=== PATIENT | male | born 1940 ===

== ENCOUNTER 2018-11-25 18:56 | Emergency (ER) | payer OTHER ==
[~2018-11-25] VITALS: Ht 172.7 cm; Wt 98.0 kg
[2018-11-25] MEDS ORDERED: Amox Tr-K Clv1 EAC1 PO (20:24)
[2018-11-25] MEDS ORDERED: PRAM.5 PO (20:25)
[2018-11-25] MEDS ORDERED: LORCET 5-325 M1 EACH PO (20:26)
[2018-11-25] MEDS ORDERED: ALLO300 PO (20:29)
[2018-11-25] MEDS ORDERED: OMEP20ER PO (20:30)
[2018-11-25] MEDS ORDERED: GEMF600 PO (20:31)
[2018-11-25] MEDS ORDERED: Augmentin 875-1 EACH PO (20:32)
[2018-11-25] MEDS ORDERED: Oxybutynin Chlo10 MG PO (20:32)
[2018-11-25] MEDS ORDERED: CARBIDOPA-LEVO1 EAC3 PO (20:33)
[2018-11-25] MEDS ORDERED: ALPR.5 PO (20:35)
[2018-11-25 20:43] LABS: BASOPHILS ABSOLUTE AUTO 0.08 K/mm3 (0.00-0.23); BASOPHILS PERCENT AUTO 1 % (0-2); EOSINOPHILS ABSOLUTE AUTO 0.29 K/mm3 (0.00-0.68); EOSINOPHILS PERCENT AUTO 4 % (0-6); Hematocrit 32.8 % (37.0-53.0); Hemoglobin 11.5 g/dL (13.5-17.5); IMMATURE GRAN ABSOLUTE AUTO 0.04 K/mm3 (0.00-0.10); IMMATURE GRAN PERCENT AUTO 1 % (0-1); LYMPHOCYTES ABSOLUTE AUTO 2.58 K/mm3 (0.84-5.20); LYMPHOCYTES PERCENT AUTO 35 % (21-46); MONOCYTES ABSOLUTE AUTO 0.85 K/mm3 (0.16-1.47); MONOCYTES PERCENT AUTO 12 % (4-13); Mean Corpuscular HGB 36.7 pg (26.0-34.0); Mean Corpuscular HGB Conc 35.1 g/dL (31.5-36.5); Mean Corpuscular Volume 105 fL (80-100); Mean Platelet Volume 9.6 fL (9.1-12.4); NEUTROPHILS ABSOLUTE AUTO 3.51 K/mm3 (1.96-9.15); NEUTROPHILS PERCENT AUTO 48 % (41-73); Platelet Count 351 K/mm3 (150-400); RDW Coefficient Variation 14.4 % (11.7-14.2); RDW Standard Deviation 55.3 fL (35.1-46.3); Red Blood Cell Count 3.13 M/mm3 (4.30-5.90); White Blood Cell Count 7.35 K/mm3 (4.00-11.30)
[2018-11-25 20:47] LABS: Alanine Aminotransfer (ALT/SGP 14 U/L (12-78); Albumin, Blood 3.4 g/dL (3.4-5.0); Albumin/Globulin Ratio 0.8 (0.8-1.8); Alk Phos 93 U/L (50-136); Anion Gap 5 mmol/L (6-16); Aspartate Aminotrans (AST/SGOT 16 U/L (12-37); Bilirubin, Total 0.2 mg/dL (0.1-1.0); Blood Urea Nitrogen 34 mg/dL (8-24); Bun/Creatinine Ratio 23.1 (12.0-20.0); CO2, Blood 24 mmol/L (21-32); Calcium, Blood 9.1 mg/dL (8.5-10.1); Chloride, Blood 114 mmol/L (98-108); Creatinine, Blood 1.47 mg/dL (0.60-1.20); Globulin, Blood 4.3 g/dL (2.2-4.0); Glomerular Filtration Rate 49 (60-); Glucose, Blood 102 mg/dL (70-99); Potassium, Blood 3.8 mmol/L (3.5-5.5); Sodium, Blood 143 mmol/L (136-145); Total Protein, Blood 7.7 g/dL (6.4-8.2); Troponin I <0.015 ng/mL (0.000-0.040)
[2018-11-25 21:31] LABS: Source, Urine Clean Catch
[2018-11-25 21:45] LABS: Bilirubin, Urine Neg (Neg); Blood, Urine Neg (Neg); Glucose Qualitative, Urine Neg (Neg); Ketones, Urine 1+ (Neg); Leukocyte Esterase, Urine 1+ (Neg); Nitrite, Urine Neg (Neg); Protein, Urine 2+ (Neg); Specific Gravity, Urine 1.015 (1.003-1.022); Urobilinogen, Urine NORM (Normal)
[2018-11-25 21:47] LABS: Appearance, Urine Clear (Clear); Color, Urine Yellow (P-Yellow)
[2018-11-25 21:55] LABS: Bacteria Not Seen /hpf; Other Crystals Few /hpf; Red Blood Cells, Urine 0-2 /hpf (0-2); Squamous Epithelial Cells Rare /hpf (Few)
[2018-11-25 21:57] LABS: U Amphetamine Screen Not Detected; U Barbituate Screen Not Detected; U Benzodiazapine Screen Not Detected; U Buprenorphine Screen Not Detected; U Cannabinoids Screen Not Detected; U Cocaine Screen Not Detected; U Methadone Screen Not Detected; U Methamphetamine Screen Not Detected; U Opiates Screen DETECTED; U Oxycodone Screen Not Detected; U Phencyclidine Screen Not Detected; U Propoxyphene Screen Not Detected
== END 2018-11-25 23:51 | disposition home or self-care (01) ==
LOC: ER 18:56
PROVIDERS: Emergency Medicine
DX: G45.9 Transient cerebral ischemic attack, unspecified (principal); Z86.718 Personal history of other venous thrombosis and embolism; Z87.442 Personal history of urinary calculi; G20 Parkinson's disease; Z88.8 Allergy status to other drugs, medicaments and biological substances; Z79.899 Other long term (current) drug therapy; Z79.891 Long term (current) use of opiate analgesic; Z79.82 Long term (current) use of aspirin
CPT/HCPCS: 70450; 71046; 80053; 81001; 82140; 84484; 85025; 87086; 93005; 93010; 96360; 99285-25; G0480; J7030

== ENCOUNTER 2018-12-17 11:34 | Emergency (ER) | payer OTHER ==
[~2018-12-17] VITALS: Ht 170.2 cm; Wt 95.2 kg
[~2018-12-17 11:34] MED LIST: ALLO300 PO; ALPR.5 PO; Amox Tr-K Clv1 EAC1 PO; Augmentin 875-1 EACH PO; CARBIDOPA-LEVO1 EAC3 PO; GEMF600 PO; LORCET 5-325 M1 EACH PO; OMEP20ER PO; Oxybutynin Chlo10 MG PO; PRAM.5 PO
[2018-12-17 12:33] LABS: BASOPHILS ABSOLUTE AUTO 0.08 K/mm3 (0.00-0.23); BASOPHILS PERCENT AUTO 1 % (0-2); EOSINOPHILS ABSOLUTE AUTO 0.21 K/mm3 (0.00-0.68); EOSINOPHILS PERCENT AUTO 3 % (0-6); Hematocrit 35.3 % (37.0-53.0); IMMATURE GRAN ABSOLUTE AUTO 0.01 K/mm3 (0.00-0.10); IMMATURE GRAN PERCENT AUTO 0 % (0-1); LYMPHOCYTES ABSOLUTE AUTO 2.51 K/mm3 (0.84-5.20); LYMPHOCYTES PERCENT AUTO 38 % (21-46); MONOCYTES ABSOLUTE AUTO 0.67 K/mm3 (0.16-1.47); MONOCYTES PERCENT AUTO 10 % (4-13); Mean Corpuscular HGB 35.3 pg (26.0-34.0); Mean Corpuscular Volume 104 fL (80-100); Mean Platelet Volume 9.6 fL (9.1-12.4); NEUTROPHILS ABSOLUTE AUTO 3.17 K/mm3 (1.96-9.15); NEUTROPHILS PERCENT AUTO 48 % (41-73); Platelet Count 293 K/mm3 (150-400); RDW Coefficient Variation 13.9 % (11.7-14.2); RDW Standard Deviation 53.1 fL (35.1-46.3); White Blood Cell Count 6.65 K/mm3 (4.00-11.30)
[2018-12-17 13:00] LABS: Alanine Aminotransfer (ALT/SGP 8 U/L (12-78); Albumin, Blood 3.7 g/dL (3.4-5.0); Albumin/Globulin Ratio 0.8 (0.8-1.8); Alk Phos 88 U/L (50-136); Anion Gap 5 mmol/L (6-16); Aspartate Aminotrans (AST/SGOT 12 U/L (12-37); Bilirubin, Total 0.4 mg/dL (0.1-1.0); Blood Urea Nitrogen 34 mg/dL (8-24); Bun/Creatinine Ratio 27.9 (12.0-20.0); CO2, Blood 24 mmol/L (21-32); Calcium, Blood 9.5 mg/dL (8.5-10.1); Chloride, Blood 110 mmol/L (98-108); Creatinine, Blood 1.22 mg/dL (0.60-1.20); Globulin, Blood 4.6 g/dL (2.2-4.0); Glomerular Filtration Rate >60 (60-); Glucose, Blood 106 mg/dL (70-99); Potassium, Blood 3.4 mmol/L (3.5-5.5); Sodium, Blood 139 mmol/L (136-145); Total Protein, Blood 8.3 g/dL (6.4-8.2)
[2018-12-17 14:06] LABS: Source, Urine Clean Catch
[2018-12-17 14:11] LABS: Bilirubin, Urine Neg (Neg); Blood, Urine Neg (Neg); Glucose Qualitative, Urine Neg (Neg); Ketones, Urine Neg (Neg); Leukocyte Esterase, Urine Neg (Neg); Nitrite, Urine Neg (Neg); Protein, Urine Neg (Neg); Specific Gravity, Urine 1.015 (1.003-1.022); Urobilinogen, Urine NORM (Normal)
[2018-12-17 14:18] LABS: Appearance, Urine Clear (Clear); Color, Urine Yellow (P-Yellow)
[2018-12-17] MEDS ORDERED: CIPR500 PO (16:47)
[2018-12-17] MEDS ORDERED: Flagyl500 MG PO (16:47)
[2018-12-17] MEDS ORDERED: POTCHL20ER PO (16:53)
[2018-12-17] MEDS ORDERED: FURO40 PO (16:53)
[2018-12-17] MEDS ORDERED: Zocor20 MG (16:53)
[2018-12-17] MEDS ORDERED: ZOLP6.25 PO (16:54)
== END 2018-12-17 17:27 | disposition home or self-care (01) ==
LOC: ER 11:34
PROVIDERS: Physician Assistant
DX: A09 Infectious gastroenteritis and colitis, unspecified (principal); Z88.8 Allergy status to other drugs, medicaments and biological substances; Z88.6 Allergy status to analgesic agent; Z79.899 Other long term (current) drug therapy; G20 Parkinson's disease; F17.210 Nicotine dependence, cigarettes, uncomplicated
CPT/HCPCS: 36415; 74177; 80053; 81003; 85025; 99284-25; A9270-GY; Q9967

== ENCOUNTER → 2019-05-07 | Outpatient (CLI) | payer OTHER ==
[~2019-05-07] MED LIST changes: +CIPR500 PO; +FURO40 PO; +Flagyl500 MG PO; +POTCHL20ER PO; +ZOLP6.25 PO; +Zocor20 MG
== END | disposition home or self-care (01) ==
LOC: LAB SHORT 15:26 → PLD 15:26
DX: D48.5 Neoplasm of uncertain behavior of skin (principal)
CPT/HCPCS: 88305

== ENCOUNTER → 2019-06-03 | Outpatient (CLI) | payer OTHER | END | disposition home or self-care (01) | LOC: LAB 15:06 → PLD 15:06 → LAB SHORT 15:06 | DX: C44.212 Basal cell carcinoma of skin of right ear and external auricular canal (principal) | CPT/HCPCS: 88305 ==

== ENCOUNTER 2020-09-01 13:35 | Emergency (ER) | payer OTHER ==
[~2020-09-01] VITALS: Ht 165.1 cm; Wt 99.8 kg
[~2020-09-01 13:35] MED LIST changes: +MECL25 PO
== END 2020-09-01 16:41 | disposition home or self-care (01) ==
LOC: ER 13:35
DX: I82.411 Acute embolism and thrombosis of right femoral vein (principal); I82.431 Acute embolism and thrombosis of right popliteal vein; F17.290 Nicotine dependence, other tobacco product, uncomplicated; Z88.6 Allergy status to analgesic agent; Z88.8 Allergy status to other drugs, medicaments and biological substances; Z79.899 Other long term (current) drug therapy
CPT/HCPCS: 93971; 99284-25

== ENCOUNTER → 2020-12-08 | Outpatient (CLI) | payer OTHER ==
[~2020-12-08] MED LIST changes: +CYCL10 PO
== END | disposition home or self-care (01) ==
LOC: LAB SHORT 14:53
DX: L82.1 Other seborrheic keratosis (principal)
CPT/HCPCS: 88305

== ENCOUNTER 2020-12-10 04:44 | Emergency (ER) | payer OTHER ==
[~2020-12-10] VITALS: Ht 167.6 cm; Wt 92.5 kg
[~2020-12-10 04:44] MED LIST changes: -CYCL10 PO
[2020-12-10] MEDS ORDERED: CYCL10 PO (08:08)
== END 2020-12-10 08:31 | disposition home or self-care (01) ==
LOC: ER 04:44
DX: S16.1XXA Strain of muscle, fascia and tendon at neck level, initial encounter (principal); M48.02 Spinal stenosis, cervical region; M47.812 Spondylosis without myelopathy or radiculopathy, cervical region; M10.9 Gout, unspecified; M19.90 Unspecified osteoarthritis, unspecified site; F17.290 Nicotine dependence, other tobacco product, uncomplicated; Z88.6 Allergy status to analgesic agent; Z88.8 Allergy status to other drugs, medicaments and biological substances; Z79.899 Other long term (current) drug therapy; Z86.718 Personal history of other venous thrombosis and embolism; W19.XXXA Unspecified fall, initial encounter
CPT/HCPCS: 72125; 96374; 96375; 99284-25; J2405; J3010

== ENCOUNTER 2021-04-20 13:05 | Observation (INO) | payer OTHER ==
[~2021-04-20] VITALS: Ht 170.2 cm; Wt 87.9 kg
[~2021-04-20 13:05] MED LIST changes: +CYCL10 PO
[2021-04-20 14:04] LABS: BASOPHILS ABSOLUTE AUTO 0.06 K/mm3 (0.00-0.23); BASOPHILS PERCENT AUTO 1 % (0-2); EOSINOPHILS ABSOLUTE AUTO 0.04 K/mm3 (0.00-0.68); EOSINOPHILS PERCENT AUTO 0 % (0-6); Hematocrit 35.6 % (37.0-53.0); IMMATURE GRAN ABSOLUTE AUTO 0.02 K/mm3 (0.00-0.10); IMMATURE GRAN PERCENT AUTO 0 % (0-1); LYMPHOCYTES ABSOLUTE AUTO 2.12 K/mm3 (0.84-5.20); LYMPHOCYTES PERCENT AUTO 22 % (21-46); MONOCYTES ABSOLUTE AUTO 0.96 K/mm3 (0.16-1.47); MONOCYTES PERCENT AUTO 10 % (4-13); Mean Corpuscular HGB 33.8 pg (26.0-34.0); Mean Corpuscular HGB Conc 33.7 g/dL (31.5-36.5); Mean Corpuscular Volume 100 fL (80-100); Mean Platelet Volume 9.7 fL (9.1-12.4); NEUTROPHILS ABSOLUTE AUTO 6.47 K/mm3 (1.96-9.15); NEUTROPHILS PERCENT AUTO 67 % (41-73); Platelet Count 252 K/mm3 (150-400); RDW Standard Deviation 51.8 fL (35.1-46.3); Red Blood Cell Count 3.55 M/mm3 (4.30-5.90); White Blood Cell Count 9.67 K/mm3 (4.00-11.30)
[2021-04-20 14:25] LABS: Albumin, Blood 3.5 g/dL (3.4-5.0); Albumin/Globulin Ratio 0.8 (0.8-1.8); Bilirubin, Total 0.9 mg/dL (0.1-1.0); Bun/Creatinine Ratio 20.8 (12.0-20.0); Calcium, Blood 9.3 mg/dL (8.5-10.1); Creatinine, Blood 1.59 mg/dL (0.60-1.20); Globulin, Blood 4.3 g/dL (2.2-4.0); Potassium, Blood 3.8 mmol/L (3.5-5.5); Total Protein, Blood 7.8 g/dL (6.4-8.2)
[2021-04-20 15:22] LABS: Source, Urine Clean Catch
[2021-04-20 15:38] LABS: Appearance, Urine Clear (Clear); Bilirubin, Urine Neg (Neg); Blood, Urine 5+ (Neg); Color, Urine Yellow (P-Yellow); Glucose Qualitative, Urine Neg (Neg); Ketones, Urine Neg (Neg); Leukocyte Esterase, Urine Neg (Neg); Nitrite, Urine Neg (Neg); Protein, Urine 3+ (Neg); Specific Gravity, Urine 1.015 (1.003-1.022); Urobilinogen, Urine NORM (Normal)
[2021-04-20 15:51] LABS: Bacteria Rare /hpf; Squamous Epithelial Cells Rare /hpf (Few)
[2021-04-20] MEDS ORDERED: XARELTO15 MG PO (21:07)
[2021-04-20] MEDS ORDERED: GABAPENTIN600 MG PO (21:10)
[2021-04-20] MEDS ORDERED: MIRT15ST PO (21:11)
[2021-04-21 10:57] LABS: Adenovirus Not Detected (NOT DETECT); Coronavirus 229E Not Detected (NOT DETECT); Coronavirus HKU1 Not Detected (NOT DETECT); Coronavirus NL63 Not Detected (NOT DETECT); Coronavirus OC43 Not Detected (NOT DETECT); Human Metapneumovirus Not Detected (NOT DETECT); Human Rhinovirus/Enterovirus Not Detected (NOT DETECT); Influenza A/H1 Not Detected (NOT DETECT); Influenza A/H3 Not Detected (NOT DETECT); SARS-Cov-2 (COVID-19), BioFire Detected (NOT DETECT)
[2021-04-21 10:58] LABS: Bordetella pertussis Not Detected (NOT DETECT); Chlamydophila pneumoniae Not Detected (NOT DETECT); Influenza A/2009-H1 Not Detected (NOT DETECT); Influenza B Not Detected (NOT DETECT); Mycoplasma pneumoniae Not Detected (NOT DETECT); Parainfluenza Virus 1 Not Detected (NOT DETECT); Parainfluenza Virus 2 Not Detected (NOT DETECT); Parainfluenza Virus 3 Not Detected (NOT DETECT); Parainfluenza Virus 4 Not Detected (NOT DETECT); Respiratory Syncytial Virus Not Detected (NOT DETECT)
--- NOTE | 2021-04-22 04:46 | NUR ---
Received patient AAOX3. Came in with progressive weakness. He also sustain a fall at home. He is complaining of right leg pain. Both of his knees are bruised. Patient is also COVID 19+. He is at [facility]. No other complaint. He slept through the shift. No acute changes noted. We will continue with monitoring patient.
--- NOTE | 2021-04-22 09:42 | NUR ---
PAIN MEDICATION PT IN THE ROOM WORKING WITH THE PATIENT. PATIENT REPORTING HIGH LEVELS OF PAIN IN RIGHT KNEE WITH MOVEMENT. PATIENT REPORTED THAT HE IS NOW READY FOR SOME PAIN MEDICATION. DISCUSSED WITH DR. ZHANG. HOME MEDICATION AND DOSE ORDERED.
[2021-04-22] MEDS ORDERED: FURO20 PO (15:18)
[2021-04-22] MEDS ORDERED: IRON18 MG PO (15:27)
[2021-04-22] MEDS ORDERED: NIAC500 PO (15:28)
[2021-04-22] MEDS ORDERED: CALCIUM 600 MG1 EA19 PO (15:28)
[2021-04-22] MEDS ORDERED: MAGNESIUM OXID500 MG PO (15:28)
[2021-04-22] MEDS ORDERED: ALBU90OI INH (15:29)
[2021-04-22] MEDS ORDERED: Amlodipine Bes2.5 MG PO (15:31)
[2021-04-22] MEDS ORDERED: Robaxin750 MG PO (15:32)
[2021-04-22] MEDS ORDERED: STALEVO 200 TA1 EACH PO (17:12)
--- NOTE | 2021-04-22 19:07 | NUR ---
END OF SHIFT SUMMARY: PATIENT REPORTED MODERATE TO HIGH LEVELS OF PAIN IN HIS RIGHT KNEE, ESPECIALLY WITH REPOSITIONING. MEDICATED PER PRNS. PT WORKED WITH THE PATIENT. PATIENT DEMONSTRATED PT EXERCISES THROUGHOUT THE SHIFT. PATIENT IS MOTIVATED TO IMPROVE. PER PT'S RECOMMENDATIONS RELAYED TO DR. ZHANG, ORTHO CONSULT PLACED. DR. LAU IN TO SEE THE PATIENT AND RECOMMENDED OUTPATIENT FOLLOW-UP. PATIENT ANXIOUS AT TIMES AND TEARFUL. PATIENT REPORTS THAT HE IS USED TO BE THE CARE PROVIDER. PATIENT IS ANXIOUS ABOUT HIS AT HOME. HE WAS ABLE TO TALK WITH HIS NEIGHBOR. HIS NEIGHBOR WILL BE HELPING HIS RUN ERRANDS. WORKED WITH THE PATIENT'S TO UPDATE THE HOME MEDICATION LIST. VERIFIED STAL[place]O DOSE WITH THE PATIENT'S AND [facility] PHARMACIST. NOTIFIED DR. ZHANG OF UPDATED MEDICATION LIST.
--- NOTE | 2021-04-23 04:24 | NUR ---
SHIFT SUMMARY PT IS AN 81 Y/O MALE, ADMITTED FOR PHYSICAL DECONDITIONING AND POSITIVE FOR COVID-19. HE IS A&O X 3, MILDLY FORGETFUL AT TIMES. BEDREST. PT REPORTEDRLE KNEE PAIN R/T A FALL AT HOME. MEDICATED WITH PRN HYDROCODONE. NO C/O NAUSEA OR SOB. VITAL SIGNS STABLE. NO ACUTE CHANGES IN PT CONDITION NOTED DURING THE NIGHT. WILL CONTINUE TO MONITOR AND TREAT PER EMAR UNTIL HAND OFF TO DAY SHIFT RN.
--- NOTE | 2021-04-23 09:30 | NUR ---
PT COMPLAINS OF NAUSEA AND LIGHTHEADEDNESS AT 0910. VSS. DR ZHANG CALLED AT 09, NO ANSWER, LEFT MESSAGE. PT RESTING SUPINE IN BED WITH EMESIS BAG IN ONE HAND AND CALL LIGHT IN THE OTHER. BED IN LOW POSITION, CALL LIGHT WITHIN REACH
--- NOTE | 2021-04-23 17:19 | NUR ---
SHIFT SUMMARY PT AXO PLEASANT AND COOPERATIVE WITH CARE. MEDICATED FOR PAIN PER EMAR THOUGH PT CONTINUES TO COMPLAIN OF PAIN IN KNEES. VSS. 91-95% ON RA. DENIES COUGH. PT HAD ONE EPISODE OF NAUSEA, NEW ORDER FOR MEDICATION FROM DR ZHANG BUT WHEN THIS NURSE WAS IN TO ADMINISTER, PT DENIED NAUSEA. BED IN LOW POSITION, CALL LIGHT WITHIN REACH.
--- NOTE | 2021-04-23 17:42 | NUR ---
PT STATES THAT HE IS FEELING WORSE THIS EVENING. HE STATES HE FEELS WEAK AND FEELS TERRIBLE. PO INTAKE ENCOURAGED, URINE IS ORANGE, DR ZHANG AWARE. VSS
--- NOTE | 2021-04-24 03:41 | NUR ---
SHIFT SUMMARY Patient with Covid positive still waiting for COVID + Rehab placement. Patient AAOX3, forgetfull at time. He is cooperative and pleasant with care. Mild complaint of pain, medicated with eMAR. No other complaint voices. We will monitor for any acute changes.
[2021-04-24 05:32] LABS: Albumin, Blood 2.7 g/dL (3.4-5.0); Anion Gap 6 mmol/L (6-16); Blood Urea Nitrogen 34 mg/dL (8-24); Bun/Creatinine Ratio 27.9 (12.0-20.0); CO2, Blood 23 mmol/L (21-32); Calcium, Blood 9.1 mg/dL (8.5-10.1); Chloride, Blood 112 mmol/L (98-108); Creatinine, Blood 1.22 mg/dL (0.60-1.20); Glomerular Filtration Rate 57 (60-); Glucose, Blood 99 mg/dL (70-99); Phosphorus, Blood 3.9 mg/dL (2.5-4.9); Potassium, Blood 4.1 mmol/L (3.5-5.5); Sodium, Blood 141 mmol/L (136-145)
--- NOTE | 2021-04-24 15:23 | NUR ---
Upon receiving a spiritual care referral for spiritual care, I visit pt. Pt is lying in bed and alert. 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 He also shars about his nondenomenational Confucianist ivan and his decade long involvement with the [employer]oyoo. Pt is very social and is struggling with the isolation and the new limitations that he is facing because of his medical issues. I provide therapeutic listening, gentle sexual assault counsellor and compnaionship. Pt responds well and ahos signs of an elevated mood. I will continue to remain available to patient and family.
--- NOTE | 2021-04-24 19:24 | NUR ---
SHIFT SUMMARY A/O X4 T/O MOST OF THE SHIFT THOUGH PT DID SEEM A BIT CONFUSED ON WHERE HE WAS WHILE PASSING 1800 MEDS, PLEASANT AND COOPERATIVE, WEAK. NO ACUTE EVENTS THIS SHIFT, CALL LIGHT IN REACH, REPORT GIVEN TO SHARIFA JONES.
--- NOTE | 2021-04-25 13:06 | NUR ---
PATIENT TO BE DISCHARGED TODAY AT 1415 TO [facility]. REPORT IS CALLED AT 1300 TO [facility]. ALL QUESTIONS ANSWERED AND PATIENT TO TRANSPORT VIA WHEEL CHAIR AT 1415 TODAY. ANNETTE AND HIS SPOIUSE ARE NOTIFIED BY CHINA JONES. PATIENT VERBALIZED HE IS HAPPY TO BE GOING TODAY. WILL REMAIN AVAILABLE FOR THIS PATIENT UNTIL TRANSFER TO [facility].
== END 2021-04-25 14:20 ==
LOC: ER 13:05 → MEDS 04-21 13:06
PROVIDERS: Internal Medicine; Physician Assistant; Student in an Organized Health Care Education/Training Program; ADMIT Family Medicine
DX: S83.91XA Sprain of unspecified site of right knee, initial encounter (principal); R53.1 Weakness; G20 Parkinson's disease; U07.1 COVID-19; M17.11 Unilateral primary osteoarthritis, right knee; M25.461 Effusion, right knee; J44.9 Chronic obstructive pulmonary disease, unspecified; I87.2 Venous insufficiency (chronic) (peripheral); M10.9 Gout, unspecified; I12.9 Hypertensive chronic kidney disease with stage 1 through stage 4 chronic kidney disease, or unspecified chronic kidney disease; N18.30 Chronic kidney disease, stage 3 unspecified; D63.1 Anemia in chronic kidney disease; F17.290 Nicotine dependence, other tobacco product, uncomplicated; R11.0 Nausea; X50.1XXA Overexertion from prolonged static or awkward postures, initial encounter; Z88.8 Allergy status to other drugs, medicaments and biological substances; Z79.01 Long term (current) use of anticoagulants; Z96.641 Presence of right artificial hip joint; Z86.718 Personal history of other venous thrombosis and embolism; Z98.1 Arthrodesis status; Z66 Do not resuscitate
CPT/HCPCS: 0202U; 36415; 70450; 71045; 73502; 73562-RT; 80053; 80069; 81001; 85025; 97110; 97116; 97162; 97166; 97530; 99285-25; A9270; G0378

== ENCOUNTER 2022-01-18 04:02 | Emergency (ER) | payer OTHER ==
[~2022-01-18] VITALS: Ht 170.2 cm; Wt 95.7 kg
[~2022-01-18 04:02] MED LIST changes: +ALBU90OI INH; +Amlodipine Bes2.5 MG PO; +CALCIUM 600 MG1 EA19 PO; +FURO20 PO; +GABAPENTIN600 MG PO; +IRON18 MG PO; +MAGNESIUM OXID500 MG PO; +MIRT15ST PO; +NIAC500 PO; +Robaxin750 MG PO; +STALEVO 200 TA1 EACH PO; +XARELTO15 MG PO
[2022-01-18 04:49] LABS: Source, Urine Clean Catch
[2022-01-18 04:55] LABS: Bilirubin, Urine Neg (Neg); Blood, Urine 2+ (Neg); Glucose Qualitative, Urine Neg (Neg); Ketones, Urine Neg (Neg); Leukocyte Esterase, Urine Neg (Neg); Nitrite, Urine Neg (Neg); Protein, Urine 3+ (Neg); Specific Gravity, Urine 1.015 (1.003-1.022); Urobilinogen, Urine NORM (Normal)
[2022-01-18 05:10] LABS: BASOPHILS ABSOLUTE AUTO 0.08 K/mm3 (0.00-0.23); BASOPHILS PERCENT AUTO 1 % (0-2); EOSINOPHILS ABSOLUTE AUTO 0.24 K/mm3 (0.00-0.68); EOSINOPHILS PERCENT AUTO 4 % (0-6); Hematocrit 32.6 % (37.0-53.0); Hemoglobin 10.8 g/dL (13.5-17.5); IMMATURE GRAN ABSOLUTE AUTO 0.02 K/mm3 (0.00-0.10); IMMATURE GRAN PERCENT AUTO 0 % (0-1); LYMPHOCYTES ABSOLUTE AUTO 2.51 K/mm3 (0.84-5.20); LYMPHOCYTES PERCENT AUTO 40 % (21-46); MONOCYTES PERCENT AUTO 13 % (4-13); Mean Corpuscular HGB 33.4 pg (26.0-34.0); Mean Corpuscular HGB Conc 33.1 g/dL (31.5-36.5); Mean Corpuscular Volume 101 fL (80-100); Mean Platelet Volume 9.8 fL (9.1-12.4); NEUTROPHILS ABSOLUTE AUTO 2.71 K/mm3 (1.96-9.15); NEUTROPHILS PERCENT AUTO 43 % (41-73); Platelet Count 255 K/mm3 (150-400); RDW Coefficient Variation 14.6 % (11.7-14.2); RDW Standard Deviation 54.4 fL (35.1-46.3); Red Blood Cell Count 3.23 M/mm3 (4.30-5.90); White Blood Cell Count 6.36 K/mm3 (4.00-11.30)
[2022-01-18 05:31] LABS: Appearance, Urine Clear (Clear); Color, Urine Yellow (P-Yellow)
[2022-01-18 05:32] LABS: Bacteria Not Seen /hpf; Red Blood Cells, Urine 0-2 /hpf (0-2); Squamous Epithelial Cells Rare /hpf (Few); White Blood Cells, Urine 0-2 /hpf (0-5)
[2022-01-18 05:33] LABS: Bun/Creatinine Ratio 24.1 (12.0-20.0); Calcium, Blood 8.2 mg/dL (8.5-10.1); Creatinine, Blood 1.37 mg/dL (0.60-1.20); Potassium, Blood 3.6 mmol/L (3.5-5.5)
== END 2022-01-18 06:53 | disposition home or self-care (01) ==
LOC: ER 04:02
PROVIDERS: Emergency Medicine
DX: R60.0 Localized edema (principal); Z88.6 Allergy status to analgesic agent; Z88.8 Allergy status to other drugs, medicaments and biological substances; Z79.899 Other long term (current) drug therapy; Z79.891 Long term (current) use of opiate analgesic; G20 Parkinson's disease; M10.9 Gout, unspecified; M19.90 Unspecified osteoarthritis, unspecified site; F17.290 Nicotine dependence, other tobacco product, uncomplicated
CPT/HCPCS: 36415; 80048; 81001; 84484; 85025; 93005; 93010

== ENCOUNTER 2022-04-09 10:02 | Inpatient (IN) | payer OTHER ==
[~2022-04-09] VITALS: Ht 170.2 cm; Wt 84.9 kg
[~2022-04-09 10:02] MED LIST changes: +ALPRAZOLAM0.5 M1 PO; +CARBIDOPA-LEVO1 EA11 PO; +CELEXA10 MG PO; +FUROSEMIDE20 MG PO; +Methocarbamol750 MG PO; +POTA10T PO; +Simvastatin40 MG PO; +XARELTO20 M1 PO
[2022-04-09 10:47] LABS: BASOPHILS ABSOLUTE AUTO 0.11 K/mm3 (0.00-0.23); BASOPHILS PERCENT AUTO 1 % (0-2); EOSINOPHILS ABSOLUTE AUTO 0.11 K/mm3 (0.00-0.68); EOSINOPHILS PERCENT AUTO 1 % (0-6); Hematocrit 31.2 % (37.0-53.0); IMMATURE GRAN ABSOLUTE AUTO 0.03 K/mm3 (0.00-0.10); IMMATURE GRAN PERCENT AUTO 0 % (0-1); LYMPHOCYTES ABSOLUTE AUTO 2.24 K/mm3 (0.84-5.20); LYMPHOCYTES PERCENT AUTO 29 % (21-46); MONOCYTES ABSOLUTE AUTO 0.78 K/mm3 (0.16-1.47); MONOCYTES PERCENT AUTO 10 % (4-13); Mean Corpuscular HGB 34.6 pg (26.0-34.0); Mean Corpuscular HGB Conc 35.3 g/dL (31.5-36.5); Mean Corpuscular Volume 98 fL (80-100); Mean Platelet Volume 9.7 fL (9.1-12.4); NEUTROPHILS ABSOLUTE AUTO 4.39 K/mm3 (1.96-9.15); NEUTROPHILS PERCENT AUTO 57 % (41-73); Platelet Count 295 K/mm3 (150-400); RDW Coefficient Variation 14.2 % (11.7-14.2); RDW Standard Deviation 51.3 fL (35.1-46.3); Red Blood Cell Count 3.18 M/mm3 (4.30-5.90); White Blood Cell Count 7.66 K/mm3 (4.00-11.30)
[2022-04-09 11:02] LABS: Alanine Aminotransfer (ALT/SGP <6 U/L (12-78); Albumin, Blood 3.2 g/dL (3.4-5.0); Albumin/Globulin Ratio 0.7 (0.8-1.8); Alk Phos 83 U/L (50-136); Anion Gap 8 mmol/L (6-16); Aspartate Aminotrans (AST/SGOT 10 U/L (12-37); Bilirubin, Total 0.5 mg/dL (0.1-1.0); Blood Urea Nitrogen 19 mg/dL (8-24); Bun/Creatinine Ratio 17.4 (12.0-20.0); CO2, Blood 24 mmol/L (21-32); Calcium, Blood 6.5 mg/dL (8.5-10.1); Chloride, Blood 109 mmol/L (98-108); Creatinine, Blood 1.09 mg/dL (0.60-1.20); Globulin, Blood 4.3 g/dL (2.2-4.0); Glomerular Filtration Rate 67 (60-); Glucose, Blood 124 mg/dL (70-99); Sodium, Blood 141 mmol/L (136-145); Total Protein, Blood 7.5 g/dL (6.4-8.2)
[2022-04-09 13:58] LABS: Thyroid Stimulating Hormone 2.34 uIU/mL (0.360-4.800)
[2022-04-09 14:11] LABS: Magnesium, Blood 0.5 mg/dL (1.6-2.4)
[2022-04-09 14:27] LABS: Source, Urine Clean Catch
[2022-04-09 14:31] LABS: Appearance, Urine Clear (Clear); Bilirubin, Urine Neg (Neg); Blood, Urine 1+ (Neg); Color, Urine Yellow (P-Yellow); Glucose Qualitative, Urine Neg (Neg); Ketones, Urine Neg (Neg); Leukocyte Esterase, Urine Neg (Neg); Nitrite, Urine Neg (Neg); Protein, Urine 2+ (Neg); Specific Gravity, Urine 1.005 (1.003-1.022); Urobilinogen, Urine NORM (Normal); pH, Urine 6.5 (5.0-8.0)
[2022-04-09 14:44] LABS: Bacteria Rare /hpf; Red Blood Cells, Urine 0-2 /hpf (0-2); Squamous Epithelial Cells Not Seen /hpf (Few); White Blood Cells, Urine 0-2 /hpf (0-5)
[2022-04-09 15:22] LABS: Influenza A, PCR NEGATIVE (NEGATIVE); Influenza B, PCR NEGATIVE (NEGATIVE); Resp Syncytial Virus, PCR NEGATIVE (NEGATIVE); SARS-Cov-2 (COVID-19) PCR, MMC NEGATIVE (NEGATIVE)
--- NOTE | 2022-04-09 18:48 | NUR ---
SHIFT SUMMARY PT TRANSFERRED FROM THE ED TOWARDS THE END OF THE SHIFT. INTITIAL ASSESSMENT DOCUMENTATION COMPLETE. ABX INFUSING NOW. PT GIVEN LIQUIDS FOR DINNER PER THE DIET ORDER. WILL REPORT TO ONCOMING NURSE.
--- NOTE | 2022-04-10 03:45 | NUR ---
SHIFT SUMMARY PATIENT IS ALERT AND ORIENTED. PATIENT HAS HAD NO ACUTE EVENT THIS SHIFT. VITAL SIGNS REVIEWED. PATIENT HAS BEEN PLEASENT AND COOPERATIVE WITH CARE. DR MET WITH PATIENT EARLY IN SHIFT AND WENT OVER REASON FOR HOSPITALIZATION AND COMFORTED PATIENT. PATIENTS NEIGHBOR TO BRING HOME DOSE MEDICATIONS IN THE MORNING. PATIENT HAS NOT COMPLAINED OF PAIN, NAUSEA, SOB OR VOMITTING. PATIENT HAS BEEN RESTING MOST OF SHIFT. PATIENT HAS BEEN USING CPAP SATTING WELL ALL NIGHT. BED IN LOCKED AND LOWEST POSITION. CALL LIGHT IN PLACE.
[2022-04-10 05:51] LABS: BASOPHILS ABSOLUTE AUTO 0.09 K/mm3 (0.00-0.23); BASOPHILS PERCENT AUTO 1 % (0-2); EOSINOPHILS ABSOLUTE AUTO 0.11 K/mm3 (0.00-0.68); EOSINOPHILS PERCENT AUTO 1 % (0-6); Hemoglobin 10.2 g/dL (13.5-17.5); IMMATURE GRAN ABSOLUTE AUTO 0.02 K/mm3 (0.00-0.10); IMMATURE GRAN PERCENT AUTO 0 % (0-1); LYMPHOCYTES ABSOLUTE AUTO 2.32 K/mm3 (0.84-5.20); LYMPHOCYTES PERCENT AUTO 27 % (21-46); MONOCYTES ABSOLUTE AUTO 0.78 K/mm3 (0.16-1.47); MONOCYTES PERCENT AUTO 9 % (4-13); Mean Corpuscular HGB 33.8 pg (26.0-34.0); Mean Corpuscular Volume 99 fL (80-100); Mean Platelet Volume 9.7 fL (9.1-12.4); NEUTROPHILS ABSOLUTE AUTO 5.42 K/mm3 (1.96-9.15); NEUTROPHILS PERCENT AUTO 62 % (41-73); Platelet Count 267 K/mm3 (150-400); RDW Coefficient Variation 14.3 % (11.7-14.2); RDW Standard Deviation 51.7 fL (35.1-46.3); Red Blood Cell Count 3.02 M/mm3 (4.30-5.90); White Blood Cell Count 8.74 K/mm3 (4.00-11.30)
[2022-04-10 06:00] LABS: International Normalized Ratio 1.27; Prothrombin Time Results 13.1 Sec (9.7-11.5)
[2022-04-10 06:13] LABS: Albumin, Blood 2.7 g/dL (3.4-5.0); Albumin/Globulin Ratio 0.7 (0.8-1.8); Bilirubin, Total 0.4 mg/dL (0.1-1.0); Bun/Creatinine Ratio 12.7 (12.0-20.0); Calcium, Blood 6.2 mg/dL (8.5-10.1); Creatinine, Blood 1.18 mg/dL (0.60-1.20); Globulin, Blood 3.9 g/dL (2.2-4.0); Magnesium, Blood 0.9 mg/dL (1.6-2.4); Potassium, Blood 3.4 mmol/L (3.5-5.5); Total Protein, Blood 6.6 g/dL (6.4-8.2)
--- NOTE | 2022-04-10 11:39 | NUR ---
PATIENT HAD A FRIEND BRING IN MEDICATION FOR PARKINSONS. PHAMACY HAS VERIFIED THE MEDICATION AND HIS HOME MED IS BAR CODED AND IN THE PATIENTS DRAWER. DURING ASSESSMENT, EDEMA WAS NOTED TO BE BUBBLED AROUND THE AREA OF COMPRESSION FROM THE SCD'S. PATEINT REPORTED THAT HE HAS BLOOD CLOTS IN THE RIGHT LE, FROM KNEE DOWN WHICH ARE ATTACHED TO THE WALL AND THAT ATTEMPTED TREATMENT BY THE VENOUS DOCTOR WAS NOT SUCCESSFUL. DR. HOYOS WAS NOTIFIED ABOUT THE CLOTS WHEN HE CAME TO THE FLOOR TO TALK WITH THE PATIENT.
--- NOTE | 2022-04-10 17:33 | NUR ---
PATIENT HAD A CRITICAL MAG LEVEL AT THE VERY BEGINNING OF AM, WITH A BAG OF MAGNESIUM ORDERED AND ADMINISTERED. LEVEL IS STILL LOW, BUT NO LONGER CRITICAL AT 1.4. PATIENT IS ALSO PRESCRIBED A COUPLE MORE ABX, ROCEPHIN AND AMOXICILLIN, BOTH OF WHICH STARTED AT 1800. PARKINSONS MEDICATION FROM HOME WAS DOC IN AND VERIFIED BY PHARMACY. HE STARTED HIS HOME MED AT 1000. LEGS ARE JUMPY. APPEAR TO BE A LITTLE BETTER THIS AFTERNOON. LS HAVE INS WHE AND EXP TALEND DEVELOPER. PATIENT ALSO MENTIONED CHRONIC BLOOD CLOTS IN RIGHT LE FROM KNEE DOWN THAT ARE AFIXED THE WALL AND NOT MOVING. PATIENT HAS SLEPT ALOT THIS SHIFT AND ONCE ASLEEP, HE SLEEPS SOUND AND IT APPEARS TO BE A STRUGGLE FOR HIM TO WAKE BACK UP- TAKES A WHILE. COCCYX HAS A PRESSURE RELATED REDDENED AREA-CLOSED AND COVERED WITH MEPILEX. NO OTHER CONCERNS
--- NOTE | 2022-04-11 03:27 | NUR ---
SHIFT SUMMARY PATIENT IS ALERT AND ORIENTED. PATIENT HAS HAD NO ACUTE EVENTS THIS SHIFT. VITAL SIGNS REVIEWED. PATIENT HAS NOT COMPLAINED OF PAIN, NAUSEA, SOB OR VOMITTING. PATIENT HAS BEEN RESTING MOST OF SHIFT. PATIENT IS PLEASENT AND COOPERATIVE AND CHATTY THIS SHIFT. PATIENT HAS BEEN USING CPAP OFF AND ON TONIGHT. BED IN LOWEST AND LOCKED POSITION. CALL LIGHT IN PLACE. WILL MONITOR UNTIL SHIFT CHANGE.
[2022-04-11 05:42] LABS: BASOPHILS ABSOLUTE AUTO 0.08 K/mm3 (0.00-0.23); BASOPHILS PERCENT AUTO 1 % (0-2); EOSINOPHILS ABSOLUTE AUTO 0.14 K/mm3 (0.00-0.68); EOSINOPHILS PERCENT AUTO 1 % (0-6); Hemoglobin 10.4 g/dL (13.5-17.5); IMMATURE GRAN ABSOLUTE AUTO 0.03 K/mm3 (0.00-0.10); IMMATURE GRAN PERCENT AUTO 0 % (0-1); LYMPHOCYTES ABSOLUTE AUTO 2.32 K/mm3 (0.84-5.20); LYMPHOCYTES PERCENT AUTO 23 % (21-46); MONOCYTES ABSOLUTE AUTO 0.84 K/mm3 (0.16-1.47); MONOCYTES PERCENT AUTO 8 % (4-13); Mean Corpuscular HGB 34.7 pg (26.0-34.0); Mean Corpuscular HGB Conc 34.7 g/dL (31.5-36.5); Mean Corpuscular Volume 100 fL (80-100); Mean Platelet Volume 9.7 fL (9.1-12.4); NEUTROPHILS PERCENT AUTO 66 % (41-73); Platelet Count 257 K/mm3 (150-400); RDW Coefficient Variation 14.3 % (11.7-14.2); RDW Standard Deviation 51.8 fL (35.1-46.3); White Blood Cell Count 10.01 K/mm3 (4.00-11.30)
[2022-04-11 06:14] LABS: Alanine Aminotransfer (ALT/SGP <6 U/L (12-78); Albumin, Blood 2.8 g/dL (3.4-5.0); Albumin/Globulin Ratio 0.8 (0.8-1.8); Alk Phos 69 U/L (50-136); Anion Gap 5 mmol/L (6-16); Aspartate Aminotrans (AST/SGOT 11 U/L (12-37); Bilirubin, Total 0.4 mg/dL (0.1-1.0); Blood Urea Nitrogen 19 mg/dL (8-24); Bun/Creatinine Ratio 17.1 (12.0-20.0); CO2, Blood 27 mmol/L (21-32); Calcium, Blood 7.3 mg/dL (8.5-10.1); Chloride, Blood 109 mmol/L (98-108); Creatinine, Blood 1.11 mg/dL (0.60-1.20); Globulin, Blood 3.6 g/dL (2.2-4.0); Glomerular Filtration Rate 65 (60-); Glucose, Blood 96 mg/dL (70-99); Potassium, Blood 3.4 mmol/L (3.5-5.5); Sodium, Blood 141 mmol/L (136-145); Total Protein, Blood 6.4 g/dL (6.4-8.2)
--- NOTE | 2022-04-11 10:50 | NUR ---
DR BALTAZAR ROUNDED, POSSIBLE DISCHARGE TODAY
[2022-04-11] MEDS ORDERED: GABA300 PO (11:07)
[2022-04-11] MEDS ORDERED: AMOCLA875 PO (11:12)
--- NOTE | 2022-04-11 18:45 | NUR ---
MAKES NEEDS KNOWN, AGGITATED THREATENING AND DOES NOT REMEBER SIMPLE TASKS FROM THIS AM, LULU REPORTS HE SUNDOWNS ON THE THIRD DAY AT THE HOSPITAL, REPORTED TO DR BALTAZAR, SEROQUEL ORDERED, PATIENT STATING "CALL THE BIG BOSS I AM LEAVING", FAMILY AND AWARE PATIENT IS NOT DISCAHRGED FROM THE HOSPITAL, CALL LIGHT WITH IN REACH, BED ALARM ON.
[2022-04-12 05:27] LABS: Calcium, Blood 8.2 mg/dL (8.5-10.1); Potassium, Blood 3.7 mmol/L (3.5-5.5)
--- NOTE | 2022-04-12 06:28 | NUR ---
UNDERCOVER AGENT SUMMARY: A&Ox3. PLEASANT AND COOPERATIVE WITH CARE. USUALLY CALLS APPROPRIATELY AND IS ABLE TO COMMUNICATE NEEDS EFFECTIVELY. BED ALARM ACTIVATED DUE TO SOME OWNING BEHAVIORS WHEN HE MENTIONED GETTING UP AND MOVING AROUND, GETTING DRESSED AND HAVING BREAKFAST. REMINDED IT IS ONLY 0330 AND HE SAID THIS IS THE TIME HE ALWAYS GETS UP. VSS. LABS DRAWN THIS AM. NO CRITICAL VALUE NOTIFICATIONS RECEIVED. WILL REPORT TO ONCOMING RN.
--- NOTE | 2022-04-12 17:45 | NUR ---
SHIFT SUMMARY PATIENT IS ALERT AND ORIENTED. PATIENT HAS HAD NO ACUTE EVENTS THIS SHIFT. VITAL SIGNS REVIEWED. PATIENT HAS NOT COMPLAINED OF PAIN, SOB, NAUSEA OR VOMITTING THIS SHIFT. PATIENT STATES HE IS CONTIMPLATING SNF VS GOING HOME. BED IN LOCKED AND LOWEST POSITION. CALL LIGHT IN PLACE. WILL MONITOR UNTIL SHIFT CHANGE.
--- NOTE | 2022-04-13 05:19 | NUR ---
SHIFT NOTE PATIENT REMAINED ALERT AND ORIENTED X4, COOPERATIVE WITH CARE THIS SHIFT. SOME CONFUSION NOTED WHEN WAKING, BUT REORIENTS WELL. RA WHEN NOT ON CPAP, TOLERATED FOR ABOUT HALF THE NIGHT. LONG APNEIC PERIODS NOTED. GENERALIZED MILD EDEMA, AND 1+ TO RLE WITH BOGGY SKIN AROUND ANKLES. LUNGS ARE DIM. PATIENT WALKED 200 FT IN HALLS WITHOUT ISSUE. NO BLOOD IN SPUTUM. NO OTHER ISSUES TO REPORT. WILL CONT TO MONITOR.
[2022-04-13 06:04] LABS: Bun/Creatinine Ratio 23.1 (12.0-20.0); Calcium, Blood 8.6 mg/dL (8.5-10.1); Creatinine, Blood 1.04 mg/dL (0.60-1.20); Magnesium, Blood 1.4 mg/dL (1.6-2.4); Potassium, Blood 4.2 mmol/L (3.5-5.5)
--- NOTE | 2022-04-13 13:56 | NUR ---
[facility] ordered Patient on Full liquid diet and requesting advancing of diet. Patient also had an episode of difficulty swallowing and is here for hemoptysis. Discussed with shaan Ruelas to order ST [facility].
--- NOTE | 2022-04-13 18:48 | NUR ---
PT ALERT AND ORIENTEDX4. RESTLESS DUE TO PARKENSINS. PT TEARFUL AT THE BEGINING OF SHIFT AND STATED THAT HE FELT LONELY. I SAT WITH PT FOR SEVERAL MINUTES REASURING PT. FAMILY SHOWED UP AND PT SEEMED TO BE HAPPIER FOR IT. SPIRITUAL CONSULTATION ORDERED. PT HAS DECLINED ALL MEALS TODAY STATING THAT HE IS TIRED OF FULL LIQUID DIET. WILL DRINK ENSURE. SPEECH EVAL ORDERED FOR RECOMMEDATION AND TREATMENT.
--- NOTE | 2022-04-14 04:49 | NUR ---
SHIFT NOTE PATIENT HAS SLEPT WELL THROUGH THE NIGHT, NO MOMENTS OF DISORIENTATION OR CONFUSION, HOWEVER HE DID REFUSE HIS CPAP, VSS. LUNG AND HEART SOUNDS DIM, PULSES PALPABLE, 1+ EDEMA TO RLE, AND GENERALIZED. NO PAIN REPORTED. USING URINAL AT BEDSIDE. WILL CONT TO MONITOR.
--- NOTE | 2022-04-14 19:41 | NUR ---
SUMMARY- PT A/O X4, MILD TREMORS ACCOMPANYING PARKINSONS. PT TOLERATING FOOD AND FLUIDS. PT IS CONT/INCONT, ATTEMPTS URINAL WITH PERIODS OF STRESS INCONT. PT UP TO CHAIR FOR MEALS. VSS, ROOM AIR, CONT PULSE OX SATS 93%. AWAITING PLACEMENT
--- NOTE | 2022-04-15 05:58 | NUR ---
PATIENT ALERT AND ORIENTED, NO CONFUSION, SLEPT WELL THROUGH THE NIGHT, HOWEVER REFUSED CPAP. ONE INCONTINENCE BRIEF, MEP CHANGED AND SKIN NOTED TO BE WNL, NO PINK OR RED AREAS. EDEMA TO BLE, DIMINISHED HEAR SOUNDS, R AC SL AND WNL. WILL CONT TO MONITOR.
[2022-04-15 10:30] LABS: BASOPHILS ABSOLUTE AUTO 0.13 K/mm3 (0.00-0.23); BASOPHILS PERCENT AUTO 2 % (0-2); EOSINOPHILS ABSOLUTE AUTO 0.35 K/mm3 (0.00-0.68); EOSINOPHILS PERCENT AUTO 5 % (0-6); Hematocrit 34.2 % (37.0-53.0); Hemoglobin 11.5 g/dL (13.5-17.5); IMMATURE GRAN ABSOLUTE AUTO 0.03 K/mm3 (0.00-0.10); IMMATURE GRAN PERCENT AUTO 0 % (0-1); LYMPHOCYTES ABSOLUTE AUTO 2.47 K/mm3 (0.84-5.20); LYMPHOCYTES PERCENT AUTO 32 % (21-46); MONOCYTES ABSOLUTE AUTO 0.45 K/mm3 (0.16-1.47); MONOCYTES PERCENT AUTO 6 % (4-13); Mean Corpuscular HGB 34.1 pg (26.0-34.0); Mean Corpuscular HGB Conc 33.6 g/dL (31.5-36.5); Mean Corpuscular Volume 102 fL (80-100); Mean Platelet Volume 9.7 fL (9.1-12.4); NEUTROPHILS ABSOLUTE AUTO 4.33 K/mm3 (1.96-9.15); NEUTROPHILS PERCENT AUTO 56 % (41-73); Platelet Count 350 K/mm3 (150-400); RDW Coefficient Variation 14.2 % (11.7-14.2); RDW Standard Deviation 52.4 fL (35.1-46.3); Red Blood Cell Count 3.37 M/mm3 (4.30-5.90); White Blood Cell Count 7.76 K/mm3 (4.00-11.30)
[2022-04-15 10:35] LABS: Albumin, Blood 3.3 g/dL (3.4-5.0); Albumin/Globulin Ratio 0.7 (0.8-1.8); Bilirubin, Total 0.3 mg/dL (0.1-1.0); Calcium, Blood 9.6 mg/dL (8.5-10.1); Creatinine, Blood 1.15 mg/dL (0.60-1.20); Globulin, Blood 4.7 g/dL (2.2-4.0); Magnesium, Blood 2.1 mg/dL (1.6-2.4)
--- NOTE | 2022-04-15 18:22 | NUR ---
CALLED DR BALTAZAR RELATED TO ACUTE NEURO CHANGE NOTED BY STRAIGHTEDGE MACHINE OPERATOR HELPER AT 1805, CALLED RN INTO ROOM BECAUSE PT HAD WEAKNESS AND SLURRED SPEECH. ACCOUNTING CLERK VERY WEAK BUR EQUAL. PUPIL R=6M L=5MM, SLUGGISH. SPEECH SLOW AND QUIET, STATES HE WANTS TO CALL IT QUITS AND DOESN'T WANT TO LIVE ANYMORE STATES "NO ONE CARES". PT IN VERY DEPRESSIVE MOOD STATE AND TEARS AND DISPARE. HOLDING SINIMET HE THINKS THE LAST DOSE MAY HAVE CAUSED HIM TO BE TOO SLEEPY. DR BALTAZAR DOES NOT WANT TO INTERVENE, XERALTO ALREADY STARTED AND WOULD LIKE TO MONITOR PT FOR NOW, TO CALL WITH WORSTENING SYMPTOMS AND RE-EVAL IN AM.
--- NOTE | 2022-04-15 18:27 | NUR ---
SUMMARY- PT A/O X3-4, UP IN CHAIR MOST OF THE DAY. TOLERATING FOOD AND FLUID. LUNGS WITH SCATTERED RHONCHI, ENC COUGH AND DB- GIVEN SENEKOT TO STIM BM, LAST 04/12. PT STATES DEPRESSION RELATED TO HIS CIRCUMSTANCES, THAT HIS ONLY CARES ABOUT HIS MONEY AND NONE OF HIS CHILDREN ARE CLOSE TO HELP AND THAT NO ONE CARES. FEELS IN DESPAIR ABOUT HIS SITUATION. TRIED TO OFFER REASSRUANCE. AT 1805 PT HAD AN ACUTE NEURO CHANGE WITH INCREASED WEAKNESS AND SLURRED SPEECH. CALL TO DELANEY WHO INSTRUCTS TO BRENT PT BUT NO INTERVENTIONS AT THIS TIME WILL EVAL IN AM.
--- NOTE | 2022-04-16 05:15 | NUR ---
SUMMARY: PATIENT HAD AN ACUTE NEURO EVENT BEFORE SHIFT CHANGE. MD WAS NOTIFIED BY PREVIOUS SHIFT. PATIENT AOX1-2. NO OBVIOUS DEFICIT TO ONE SIDE BUT PATIENT TRAILER MECHANIC WEAK ON BOTH HANDS. STILL TOLERATING THIN LIQUIDS. VSS. CPAP WORN OVERNIGHT. PATIENT TURNS HIMSELF FREQUENTLY IN BED. CONT/INC THROUGHOUT SHIFT. PATIENT REFUSED LABS THIS MORNING. NURSE REQUESTED TECH COMES BACK TO TRY ONCE PATIENT IS MORE AWAKE.
[2022-04-16 09:12] LABS: BASOPHILS ABSOLUTE AUTO 0.11 K/mm3 (0.00-0.23); BASOPHILS PERCENT AUTO 1 % (0-2); EOSINOPHILS ABSOLUTE AUTO 0.26 K/mm3 (0.00-0.68); EOSINOPHILS PERCENT AUTO 3 % (0-6); Hematocrit 35.6 % (37.0-53.0); Hemoglobin 11.8 g/dL (13.5-17.5); IMMATURE GRAN ABSOLUTE AUTO 0.05 K/mm3 (0.00-0.10); IMMATURE GRAN PERCENT AUTO 1 % (0-1); LYMPHOCYTES ABSOLUTE AUTO 1.96 K/mm3 (0.84-5.20); LYMPHOCYTES PERCENT AUTO 20 % (21-46); MONOCYTES ABSOLUTE AUTO 0.67 K/mm3 (0.16-1.47); MONOCYTES PERCENT AUTO 7 % (4-13); Mean Corpuscular HGB 34.1 pg (26.0-34.0); Mean Corpuscular HGB Conc 33.1 g/dL (31.5-36.5); Mean Corpuscular Volume 103 fL (80-100); NEUTROPHILS ABSOLUTE AUTO 6.75 K/mm3 (1.96-9.15); NEUTROPHILS PERCENT AUTO 69 % (41-73); Platelet Count 325 K/mm3 (150-400); RDW Coefficient Variation 14.4 % (11.7-14.2); RDW Standard Deviation 53.3 fL (35.1-46.3); Red Blood Cell Count 3.46 M/mm3 (4.30-5.90)
[2022-04-16 09:31] LABS: Bun/Creatinine Ratio 27.6 (12.0-20.0); Calcium, Blood 9.1 mg/dL (8.5-10.1); Creatinine, Blood 1.27 mg/dL (0.60-1.20); Potassium, Blood 5.6 mmol/L (3.5-5.5)
--- NOTE | 2022-04-16 13:10 | NUR ---
Spiritual care consult received and processed, chart reviewed, and patient visit conducted. Patient's opening statement once he understood the nature of my visit was, "I want to go and be with my Father in [place]." His dtr, Davina is on speaker phone listening the entire visit but says nothing during my conversation with the patient. The patient is tearful through out the visit with exception to the last 10 min or so. He explains about how physically, mentally and emotionally exhausted he is and this is one reason he "just wants to ." He tells me that it would be better for his ailing if he dies because of his ever increasing needs due to his Parkinson's disease. I questioned the patient about the idea that if I had his in the , would she say she would be better off with out you after 65 yrs together? THe patient said, "No" to this question. Once I begin exploring the patient's spiritual belief, the conversation begins to turn in a different direction and he reveals the trust he has in God and how God is his inspiration to keep pushing through challenging times. We talk about how he could trust God, his pure motives and his timing to strengthen him in his current situation. Patient also explains his practice of thanking God everyday that he is here and for his many blessings. We again apply this to his outlook even given his medical problems. We thus align his core beliefs with his emotions and outlook on the future. Patient showed signs of being encouraged by his own beliefs, recitation of the scriptures, theological insights, therapeutic listening and prayer. Patient voices much appreciation for the spiritual care visit.
--- NOTE | 2022-04-16 19:06 | NUR ---
SHIFT SUMMARY PT CONFUSED UPON WAKING DURING MORNING ASSESSMENT. PT BECOME MORE ALERT AFTER GETTING UP TO CHAIR AND EATING BREAKFAST. PT CURRENTLY A&OX3 AND PLEASANT. PT UP TO CHAIR DURING THE MORNING AND TOLERATED WELL. USED URINAL INDEPENDENTLY. PT TEARFUL THIS AM AND WAS ABLE TO TALK WITH DENTAL DETAIL REPRESENTATIVE FOR SOME TIME. MIRALAX GIVEN IN AM BUT NO BM TODAY. BED IN LOWEST POSITION AND CALL LIGHT IN REACH. REPORT GIVEN TO ORGAN PIPE VOICER NURSE.
--- NOTE | 2022-04-17 04:30 | NUR ---
SUMMRAY: PATIENT AOX4 BEFORE BED. VSS. CONT/INC OVERNIGHT. WORE HIS CPAP WHILE ASLEEP. MEDS WHOLE IN APPLESAUCE. NO ACUTE EVENTS. CALL LIGHT IN REACH. BED ALARM ON. PATIENT TURNS INDEPENDENTLY IN BED.
[2022-04-17 07:40] LABS: BASOPHILS ABSOLUTE AUTO 0.08 K/mm3 (0.00-0.23); BASOPHILS PERCENT AUTO 1 % (0-2); EOSINOPHILS ABSOLUTE AUTO 0.31 K/mm3 (0.00-0.68); EOSINOPHILS PERCENT AUTO 4 % (0-6); Hemoglobin 11.6 g/dL (13.5-17.5); IMMATURE GRAN ABSOLUTE AUTO 0.05 K/mm3 (0.00-0.10); IMMATURE GRAN PERCENT AUTO 1 % (0-1); LYMPHOCYTES ABSOLUTE AUTO 2.54 K/mm3 (0.84-5.20); LYMPHOCYTES PERCENT AUTO 33 % (21-46); MONOCYTES ABSOLUTE AUTO 0.88 K/mm3 (0.16-1.47); MONOCYTES PERCENT AUTO 12 % (4-13); Mean Corpuscular HGB 34.3 pg (26.0-34.0); Mean Corpuscular HGB Conc 34.1 g/dL (31.5-36.5); Mean Corpuscular Volume 101 fL (80-100); Mean Platelet Volume 9.9 fL (9.1-12.4); NEUTROPHILS ABSOLUTE AUTO 3.78 K/mm3 (1.96-9.15); NEUTROPHILS PERCENT AUTO 50 % (41-73); Platelet Count 365 K/mm3 (150-400); RDW Coefficient Variation 14.3 % (11.7-14.2); RDW Standard Deviation 52.5 fL (35.1-46.3); Red Blood Cell Count 3.38 M/mm3 (4.30-5.90); White Blood Cell Count 7.64 K/mm3 (4.00-11.30)
[2022-04-17 08:02] LABS: Bun/Creatinine Ratio 28.9 (12.0-20.0); Calcium, Blood 9.3 mg/dL (8.5-10.1); Creatinine, Blood 1.42 mg/dL (0.60-1.20); Potassium, Blood 4.9 mmol/L (3.5-5.5)
[2022-04-17] MEDS ORDERED: QUETIAPINE FUMA50 M2 PO (12:05)
[2022-04-17] MEDS ORDERED: XARELTO20 MG PO (12:07)
--- NOTE | 2022-04-17 17:13 | NUR ---
shift summary- PT A@O X4. PT COOPERATIVE. ON RA. UP IN CHAIR THROUGH OUT SHIFT. PILLS WHOLE IN APPLESAUCE. WILL CONTINUE TO MONIOTR. CALL LIGHT IN REACH, BED ALARM ON.
--- NOTE | 2022-04-17 17:21 | NUR ---
D/C PT WITH PAPERWORK AND BELONGINGS IN HAND[facility]
== END 2022-04-17 17:02 | disposition home health service (06) | DRG 194 ==
LOC: ER 10:02 → MEDS 15:14 → ENPENDDIS 04-11 15:41 → MEDS 04-17 17:02
PROVIDERS: Internal Medicine; Physician Assistant; Student in an Organized Health Care Education/Training Program; ADMIT Internal Medicine
DX: J18.9 Pneumonia, unspecified organism (principal); J44.0 Chronic obstructive pulmonary disease with (acute) lower respiratory infection; R04.2 Hemoptysis; G20 Parkinson's disease; Z66 Do not resuscitate; Z20.822 Contact with and (suspected) exposure to COVID-19; F02.80 Dementia in other diseases classified elsewhere, unspecified severity, without behavioral disturbance, psychotic disturbance, mood disturbance, and anxiety; M10.9 Gout, unspecified; F17.290 Nicotine dependence, other tobacco product, uncomplicated; E83.42 Hypomagnesemia; E87.6 Hypokalemia; R29.6 Repeated falls; E83.51 Hypocalcemia; G47.33 Obstructive sleep apnea (adult) (pediatric); R32 Unspecified urinary incontinence; G47.00 Insomnia, unspecified; N18.2 Chronic kidney disease, stage 2 (mild); D63.1 Anemia in chronic kidney disease; Z96.641 Presence of right artificial hip joint; K59.00 Constipation, unspecified; Z86.718 Personal history of other venous thrombosis and embolism; Z98.890 Other specified postprocedural states; Z88.8 Allergy status to other drugs, medicaments and biological substances; Z79.01 Long term (current) use of anticoagulants; Z79.899 Other long term (current) drug therapy; W18.39XA Other fall on same level, initial encounter
CPT/HCPCS: 0241U; 36415; 71046; 71260; 80048; 80053; 81001; 82330; 83735; 83880; 84132; 84145; 84443; 84484; 85025; 85610; 92526; 92610; 93005; 93010; 94660; 94762; 96365-59; 96366-59; 96368; 96375-59; 97116; 97129; 97130; 97162; 97165; 97530; 97535; 99285-25; A9270; J0456; J0696; J3475; J3480; J7030; J7050; Q9967

== ENCOUNTER → 2022-05-18 | Outpatient (CLI) | payer OTHER ==
[~2022-05-18] MED LIST changes: +AMOCLA875 PO; +GABA300 PO; +QUETIAPINE FUMA50 M2 PO; +XARELTO20 MG PO
[2022-05-18 17:22] LABS: CHOL/HDL RATIO 4.8; Cholesterol 186 mg/dL (50-200); HDL Cholesterol 39 mg/dL (>39); LDL/HDL RATIO 2.9; Low Density Lipoprotein Chol 113 mg/dL (0-110); Triglycerides 170 mg/dL (30-160); Very Low Density Lipoprot Chol 34 mg/dL (6-32)
== END | disposition home or self-care (01) ==
LOC: LAB 10:39 → LAB SHORT 10:39
PROVIDERS: Family Medicine
DX: E78.2 Mixed hyperlipidemia (principal)
CPT/HCPCS: 80061

== ENCOUNTER 2023-01-02 08:06 | Emergency (ER) | payer OTHER ==
[~2023-01-02] VITALS: Ht 167.6 cm; Wt 68.0 kg
[2023-01-02 13:29] LABS: Alanine Aminotransfer (ALT/SGP 11 U/L (12-78); Albumin, Blood 2.8 g/dL (3.4-5.0); Albumin/Globulin Ratio 0.7 (0.8-1.8); Alk Phos 73 U/L (50-136); Anion Gap Unable to Calculate mmol/L (6-16); Aspartate Aminotrans (AST/SGOT 13 U/L (12-37); Bilirubin, Total 0.2 mg/dL (0.1-1.0); Blood Urea Nitrogen 25 mg/dL (8-24); Bun/Creatinine Ratio 13.8 (12.0-20.0); CO2, Blood 26 mmol/L (21-32); Calcium, Blood 8.8 mg/dL (8.5-10.1); Chloride, Blood 118 mmol/L (98-108); Creatinine, Blood 1.81 mg/dL (0.60-1.20); Globulin, Blood 3.8 g/dL (2.2-4.0); Glomerular Filtration Rate 36 (60-); Glucose, Blood 95 mg/dL (70-99); Potassium, Blood 3.6 mmol/L (3.5-5.5); Sodium, Blood 143 mmol/L (136-145); Total Protein, Blood 6.6 g/dL (6.4-8.2)
[2023-01-02 13:35] LABS: BASOPHILS ABSOLUTE AUTO 0.05 K/mm3 (0.00-0.23); BASOPHILS PERCENT AUTO 1 % (0-2); EOSINOPHILS ABSOLUTE AUTO 0.15 K/mm3 (0.00-0.68); EOSINOPHILS PERCENT AUTO 2 % (0-6); Hematocrit 27.3 % (37.0-53.0); Hemoglobin 9.3 g/dL (13.5-17.5); IMMATURE GRAN ABSOLUTE AUTO 0.01 K/mm3 (0.00-0.10); IMMATURE GRAN PERCENT AUTO 0 % (0-1); LYMPHOCYTES ABSOLUTE AUTO 2.47 K/mm3 (0.84-5.20); LYMPHOCYTES PERCENT AUTO 34 % (21-46); MONOCYTES ABSOLUTE AUTO 0.63 K/mm3 (0.16-1.47); MONOCYTES PERCENT AUTO 9 % (4-13); Mean Corpuscular HGB 35.6 pg (26.0-34.0); Mean Corpuscular HGB Conc 34.1 g/dL (31.5-36.5); Mean Corpuscular Volume 105 fL (80-100); Mean Platelet Volume 9.7 fL (9.1-12.4); NEUTROPHILS ABSOLUTE AUTO 3.89 K/mm3 (1.96-9.15); NEUTROPHILS PERCENT AUTO 54 % (41-73); Platelet Count 330 K/mm3 (150-400); RDW Standard Deviation 50.1 fL (35.1-46.3); Red Blood Cell Count 2.61 M/mm3 (4.30-5.90)
[2023-01-02 13:54] VITALS: BP 110/51
[2023-01-02 14:05] LABS: Source, Urine Clean Catch
[2023-01-02 14:55] LABS: Appearance, Urine Clear (Clear); Bilirubin, Urine Neg (Neg); Blood, Urine 1+ (Neg); Color, Urine Yellow (P-Yellow); Glucose Qualitative, Urine Neg (Neg); Ketones, Urine Neg (Neg); Leukocyte Esterase, Urine Neg (Neg); Nitrite, Urine Neg (Neg); Protein, Urine 2+ (Neg); Specific Gravity, Urine 1.015 (1.003-1.022); Urobilinogen, Urine NORM (Normal)
--- NOTE | 2023-01-02 15:29 | NUR ---
Reynaldo "Eliseo" is alert, lying back on the gurney. EMPLOYEE BENEFITS COORDINATOR request assistance from Palliative as pt appears agitated, states he has "No one", but upon continued conversation, he expands on this, stating his kids and have "given up" on him. He states he is "worthless" and no one wants him around. His affect is flat. Gurpreet in is attempting to assist pt in placement. Matthew
[2023-01-02 15:45] LABS: Bacteria Rare /hpf; Squamous Epithelial Cells Not Seen /hpf (Few); White Blood Cells, Urine 0-2 /hpf (0-5)
== END 2023-01-02 17:42 | disposition home or self-care (01) ==
LOC: ER 08:06
PROVIDERS: Physician Assistant
DX: R62.7 Adult failure to thrive (principal); G20.A1 Parkinson's disease without dyskinesia, without mention of fluctuations; F17.290 Nicotine dependence, other tobacco product, uncomplicated; Z68.24 Body mass index [BMI] 24.0-24.9, adult; Z88.6 Allergy status to analgesic agent; Z88.8 Allergy status to other drugs, medicaments and biological substances; Z79.01 Long term (current) use of anticoagulants; Z79.899 Other long term (current) drug therapy
CPT/HCPCS: 80053; 81001; 83735; 85025; 99285; A9270

== ENCOUNTER 2023-02-07 14:33 | Observation (INO) | payer OTHER ==
[~2023-02-07] VITALS: Ht 170.2 cm; Wt 80.1 kg
[2023-02-07 15:11] LABS: BASOPHILS ABSOLUTE AUTO 0.06 K/mm3 (0.00-0.23); BASOPHILS PERCENT AUTO 1 % (0-2); EOSINOPHILS ABSOLUTE AUTO 0.01 K/mm3 (0.00-0.68); EOSINOPHILS PERCENT AUTO 0 % (0-6); Hemoglobin 10.2 g/dL (13.5-17.5); IMMATURE GRAN ABSOLUTE AUTO 0.03 K/mm3 (0.00-0.10); IMMATURE GRAN PERCENT AUTO 0 % (0-1); LYMPHOCYTES ABSOLUTE AUTO 1.19 K/mm3 (0.84-5.20); LYMPHOCYTES PERCENT AUTO 13 % (21-46); MONOCYTES ABSOLUTE AUTO 0.76 K/mm3 (0.16-1.47); MONOCYTES PERCENT AUTO 9 % (4-13); Mean Corpuscular HGB 35.5 pg (26.0-34.0); Mean Corpuscular Volume 105 fL (80-100); Mean Platelet Volume 10.5 fL (9.1-12.4); NEUTROPHILS ABSOLUTE AUTO 6.93 K/mm3 (1.96-9.15); NEUTROPHILS PERCENT AUTO 77 % (41-73); Platelet Count 269 K/mm3 (150-400); RDW Coefficient Variation 14.6 % (11.7-14.2); RDW Standard Deviation 55.8 fL (35.1-46.3); Red Blood Cell Count 2.87 M/mm3 (4.30-5.90); White Blood Cell Count 8.98 K/mm3 (4.00-11.30)
[2023-02-07 15:39] LABS: Alanine Aminotransfer (ALT/SGP 6 U/L (12-78); Albumin, Blood 3.2 g/dL (3.4-5.0); Albumin/Globulin Ratio 0.8 (0.8-1.8); Alk Phos 97 U/L (50-136); Anion Gap Unable to Calculate mmol/L (6-16); Aspartate Aminotrans (AST/SGOT 29 U/L (12-37); Bilirubin, Total 0.5 mg/dL (0.1-1.0); Blood Urea Nitrogen 27 mg/dL (8-24); CO2, Blood 28 mmol/L (21-32); Calcium, Blood 8.6 mg/dL (8.5-10.1); Chloride, Blood 116 mmol/L (98-108); Creatinine, Blood 1.35 mg/dL (0.60-1.20); Globulin, Blood 4.1 g/dL (2.2-4.0); Glomerular Filtration Rate 51 (60-); Glucose, Blood 123 mg/dL (70-99); Potassium, Blood 4.2 mmol/L (3.5-5.5); Sodium, Blood 142 mmol/L (136-145); Total Protein, Blood 7.3 g/dL (6.4-8.2)
[2023-02-08 00:04] VITALS: BP 107/70
[2023-02-08 03:48] LABS: BASOPHILS ABSOLUTE AUTO 0.02 K/mm3 (0.00-0.23); BASOPHILS PERCENT AUTO 0 % (0-2); EOSINOPHILS PERCENT AUTO 0 % (0-6); Hematocrit 31.1 % (37.0-53.0); Hemoglobin 10.4 g/dL (13.5-17.5); IMMATURE GRAN ABSOLUTE AUTO 0.04 K/mm3 (0.00-0.10); IMMATURE GRAN PERCENT AUTO 0 % (0-1); LYMPHOCYTES ABSOLUTE AUTO 0.97 K/mm3 (0.84-5.20); LYMPHOCYTES PERCENT AUTO 10 % (21-46); MONOCYTES ABSOLUTE AUTO 0.55 K/mm3 (0.16-1.47); MONOCYTES PERCENT AUTO 6 % (4-13); Mean Corpuscular HGB 35.4 pg (26.0-34.0); Mean Corpuscular HGB Conc 33.4 g/dL (31.5-36.5); Mean Corpuscular Volume 106 fL (80-100); Mean Platelet Volume 10.2 fL (9.1-12.4); NEUTROPHILS ABSOLUTE AUTO 7.72 K/mm3 (1.96-9.15); NEUTROPHILS PERCENT AUTO 83 % (41-73); Platelet Count 196 K/mm3 (150-400); RDW Coefficient Variation 14.6 % (11.7-14.2); Red Blood Cell Count 2.94 M/mm3 (4.30-5.90)
[2023-02-08 03:56] VITALS: BP 117/65
--- NOTE | 2023-02-08 04:27 | NUR ---
admit note/shift summary Pt arrived to pcu from ed via ed stretcher at approx midnight. Pt was slid by 4 staff from ed stretcher to pcu bed. Pt a&ox4, anxious bc pt states his is home with cancer and he should be caring for her. sp02>90% on ra. cpap at night. Call placed to MD sahni for cpap order. RT in room to set up. Pt reports cp with deep breaths. Telemetry shows nsr/sinus grace. hr 50's-60's. Pt denies cp at rest, only with deep breaths. Used urinal to void. no bm. Pt oriented to room, call light. C/O cold feet, heating pad applied. Pt resting in room, call light in reach. Echo in am.
[2023-02-08 05:53] LABS: Alanine Aminotransfer (ALT/SGP <6 U/L (12-78); Albumin, Blood 2.8 g/dL (3.4-5.0); Albumin/Globulin Ratio 0.7 (0.8-1.8); Alk Phos 82 U/L (50-136); Anion Gap 2 mmol/L (6-16); Aspartate Aminotrans (AST/SGOT 17 U/L (12-37); Bilirubin, Total 0.4 mg/dL (0.1-1.0); Blood Urea Nitrogen 27 mg/dL (8-24); Bun/Creatinine Ratio 18.4 (12.0-20.0); CO2, Blood 24 mmol/L (21-32); Calcium, Blood 8.6 mg/dL (8.5-10.1); Chloride, Blood 115 mmol/L (98-108); Creatinine, Blood 1.47 mg/dL (0.60-1.20); Globulin, Blood 4.1 g/dL (2.2-4.0); Glomerular Filtration Rate 46 (60-); Glucose, Blood 167 mg/dL (70-99); Potassium, Blood 4.1 mmol/L (3.5-5.5); Sodium, Blood 141 mmol/L (136-145); Total Protein, Blood 6.9 g/dL (6.4-8.2)
[2023-02-08 08:46] VITALS: BP 116/70
--- NOTE | 2023-02-08 10:25 | NUR ---
AM NOTE: PATIENT ALERT AND ORIENTED. VERY SOFT SPOKEN. VERY SAD AND TEARFUL THIS MORNING ABOUT BEING AT HOME WITH COLON CANCER. CAREGIVER AT HOME WITH AT THIS TIME. PATIENT WANTING TO GO HOME AND TAKE CARE OF . THIS RN CALLED FOR PASTORAL CARE, NONE IN HOUSE AT THIS TIME. AT BASELINE UP WITH WALKER IND. BASELINE TREMORS WITH HISTORY OF PARKINSONS. DENIES NUMBNESS/TINGLING. PERRLA. WEARING CPAP UPON SHIFT START WHILE SLEEPING. TRANSITIONED TO ROOM AIR WHILE AWAKE AND SATING ABOVE 95%. DENIES SOB/COUGH. LUNGS SOUNDING CLEAR AND DIM IN BASES. EVEN AND UNLABORED RESPIRATIONS. TELE SHOWING SR WITH HR 60-70'S. NO TELE EVENTS RECORDED THIS AM. CHRONIC DISEASE MANAGER CALLED THIS RN AND NOTIFIED OF 5 SECOND PAUSE THAT HAPPENED 02/07 IN ED WHEN PATIENT WAS BEING ADMITTED. DR. CROWE ON FOR CARDIOLOGY CONSULT. ECHO COMPLETED AT BEDSIDE THIS AM. PT DENIES CHEST PAIN/PRESSURE/PALPITATIONS. PT STATES THE CHEST PAIN HE HAD YESTERDAY IS NOW RESOLVED. DENIES CP WITH DEEP BREATH. BP STABLE. PPP. EDEMA NOTED IN BLE. 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 SWELLING NOTED IN BLE AND FEET. BOWEL TONES PRESENT. PT STATES HIS BOWEL MOVEMENTS AT HOME HAVE BEEN "BLACK". NO BOWEL MOVEMENT THIS AM. USING URINAL TO VOID IN BED. URINE YELLOW IN COLOR. PATIENT HAD EPISODE OF VOMITTING THIS AM AFTER AM PILLS WERE GIVEN. AFTER EPISODE OF VOMIT PATIENT DENIES NAUSEA/ABDOMINAL PAIN. DENIED NEED FOR NAUSEA MEDICATION. PATIENT STATES HE OCCASIONALY GETS SICK AFTER TAKING MEDS ON EMPTY STOMACH. SMALL AMOUT OF BREAKFAST CONSUMED. DRINKING FLUIDS. DR. JOHNSON IN THIS AM, THIS RN AT BEDSIDE. ORDERS FOR PO 20 MG OMEPRAZOLE STARTING TODAY. ORDERS IN PLACE. SKIN OVERALL FRAGILE WITH SCATTERED BRUISING. CALL LIGHT IN REACH, PATIENT DENIES NEEDS AT THIS TIME.
[2023-02-08 11:33] VITALS: BP 113/62
--- NOTE | 2023-02-08 15:09 | NUR ---
DR. CROWE IN FOR CONSULTATION. PLAN FOR PATIENT TO DISCHARGE ON [facility] WITH CARDIOLOGY FOLLOW UP. NO STAFF PRESENT TO PLACE ZIO PATCH TODAY OR THIS WEEKEND. PLAN FOR PATIENT TO RETURN NEXT WEEK TO PLACE [facility] OUTPATIENT. [facility] SCHEDULING. CANDY FORMING MACHINE OPERATOR IN TO DISCUSS HOME CARE WITH PATIENT. CANDY FORMING MACHINE OPERATOR TO CALL PATIENTS PERSONAL CANDY FORMING MACHINE OPERATOR AND TO DISCUSS ASSISTED OPTIONS. DR. JOHNSON CALLED AND UPDATED BY THIS RN. PLAN FOR POSSIBLE DISCHARGE TOMORROW.
--- NOTE | 2023-02-08 15:23 | NUR ---
THIS RN WAS GIVEN UPDATE BY SANTINO. DR. JOHNSON CALLED AND PT/OT EVAL ORDERS IN PLACE.
--- NOTE | 2023-02-08 15:41 | NUR ---
ADDITIONAL FAX SENT TO [facility] REQUESTING CARDIOLOGY REF AND FOLLOW UP APPOINTMENT. COPY OF FAX PLACED IN CHART [facility] COPY OF FAXED [facility] P[facility] ORDER THAT WAS SENT TO [facility]PATIENT SCHEDULING.
[2023-02-08 15:51] VITALS: BP 114/55
--- NOTE | 2023-02-08 17:33 | NUR ---
SHIFT SUMMARY: NO ACUTE CHANGES. VITAL SIGNS REMAINS STABLE. SEE PREVIOUS NOTES FOR UPDATES. PLAN FOR PT/OT EVAL TOMORROW. REMAINS ON ROOM AIR WHILE AWAKE AND CPAP WHEN SLEEPING. NO TELE EVENTS THIS SHIFT. BP STABLE. CONTINUES TO DENY CHEST PAIN/PRESSURE/PALPITATIONS. EATING DINNER AT THIS TIME. USING URINAL. UP TO BSC ONE TIME THIS SHIFT, PASSING GAS. IV REMAINS SALINE LOCKED. CALL LIGHT IN REACH. PATIENT USING PERSONAL CELLPHONE TO TALK WITH ON PHONE. PATIENT CONTINUES TO HAVE EPISODES WHERE HE IS TEARFUL DISCUSSING HIS , HIMSELF AND HIS CHILDREN. THIS RN AND CONDUIT HELPER PROVIDED THERAPUETIC LISTENING. PATIENT DENIES BED BATH TODAY. CALL LIGHT IN REACH.
[2023-02-08 20:00] VITALS: BP 108/62
--- NOTE | 2023-02-08 21:40 | NUR ---
ASSUMPTION OF CARE THIS RN ASSUMED CARE OF PT AT 1900. REPORT FROM ROBERT MUSA. PT AWAKE IN THE ROOM, WATCHING TV. PT A&O X 3. PLEASANT AND COOPERATIVE WITH CARE AT THIS TIME. VSS. PT DENIES CP/PRESSURE, DENIES SOB, OR DIZZINESS. PT ON RA, CPAP AT BEDSIDE. PT DENIES ANY PAIN AT THIS TIME, ALTHOUGH OT IS RESTLESS AND STATES "I JUST CAN'T GET COMFORTABLE". PT NOT ABLE TO VERBALIZE WHY OR IF ANYTHING IS THE MATTER. PT DECLINES ASSISTANCE TO GET COMFORTABLE OR OTHER INTERVENTIONS OFFERED AT THIS TIME. PT REPOSITIONING INDEPENDENTLY IN BED. CALL LIGHT IN REACH.
[2023-02-09 00:30] VITALS: BP 105/51
[2023-02-09 04:18] VITALS: BP 107/54
--- NOTE | 2023-02-09 05:25 | NUR ---
SHIFT SUMMARY PT REMAINS A&O W/NO CHANGES TO NEURO FROM ASSUMPTION OF CARE NOTE. VSS T/O SHIFT. PT WORE CPAP MOST OF THE EVENING BUT TOOK IT OFF "BECAUSE IT WAS LEAKING AND IRRITATING" HIM. THIS RN TRIED TO READJUST MASK AND ASSIST PT, BUT HE DECLINED TO WEAR MASK AGAIN. OTHERWISE PT HAD AN UNEVENTFUL NIGHT. PT RESTED ON AND OFF; REPOSITIONED INDEPENDENTLY. PT USING URINAL AT BEDSIDE INDEPENDENTLY. NO ACUTE CHANGES FROM ASSUMPTION OF CARE NOTE. WILL UPDATE ONCOMING RN
--- NOTE | 2023-02-09 06:39 | NUR ---
UPDATE THIS RN INTO PT'S ROOM TO ADMINISTER AM MEDICATIONS; PT DECLINES AT THIS TIME. STATES "I AM TOO TIRED" AND "I WAS UP ALL NIGHT". PT REQUESTING TO "WAIT A WHILE" BEFORE TAKING HIS MORNING MEDICATIONS. THIS RN WILL UPDATE ONCOMING RN
[2023-02-09 07:26] VITALS: BP 100/55
--- NOTE | 2023-02-09 07:36 | NUR ---
AM NOTE: PATIENT REMAINS ALERT AND ORIENTED X3-4. SLEEPY THIS AM STATING HE DID NOT GET ANY SLEEP LAST NIGHT. PERRLA, DENIES NUMBNESS/TINGLING. DENIES PAIN. STATES THAT HE FEELS LIKE HIS NORMAL SELF BESIDES THE LACK OF SLEEP. TURNING SELF IN BED. PT/OT ORDERS IN PLACE. ON ROOM AIR SATING MID 90'S. DENIES SOB/COUGH. EVEN AND UNLABORED RESPIRATIONS. LUNGS SOUNDING CLEAR AND DIM IN BASES. TELE SHOWING SR WITH HR 60-70'S. DENIES CHEST PAIN/PRESSURE/PALPITATIONS. DENIES CHEST PAIN WITH DEEP BREATH. PPP. EDEMA NOTED IN BLE. HEART SOUNDS DISTANT. BOWEL TONES PRESENT. USING URINAL IN BED IND. DENIES ABDOMINAL PAIN/NAUSEA. CALL LIGHT IN REACH. PATIENT WANTING TO TRY AND GO BACK TO SLEEP, DENIES NEEDS.
--- NOTE | 2023-02-09 09:36 | NUR ---
PHYSICAL THERAPY ASSESSMENT THIS AM. RECOMENDATIONS FOR SKILLED NURISING. THIS RN SPOKE WITH WILLARD ON PHONE. IS HOPING AFTER PRISON FACILITY PATIENT WILL BE ABLE TO TRANSITION TO ASSISTED LIVING. STATES THEY HAVE A PERSONAL VIOLIN RESTORER THAT IS GOING TO BE HELPING WITH THAT TRANSITION. THIS RN CALLED DAVID WONG, TO DISCUSS SNF. DR. JOHNSON UPDATED ON PRISON REF. PLAN FOR MEDICAL STATUS WITH TELE. IF PATIENT IS STILL HERE ON SATURDAY HE MAY BE ABLE TO HAVE ZIO PATCH PLACED, PRIOR TO DC.
[2023-02-09 11:00] VITALS: BP 108/54
--- NOTE | 2023-02-09 13:54 | NUR ---
HAZARDOUS MATERIAL TECHNICIAN BY TO DISCUSS PENITENTIARY FACILITY.
--- NOTE | 2023-02-09 15:04 | NUR ---
WILLARD AND CAREGIVER DEVANG AT BEDSIDE VISITING. THIS RN PROVIDED UPDATED. VITAL SIGNS STABLE. NO ACUTE CHANGES. WILLARD BROUGHT IN PERSONAL CASE WORKERS PHONE NUMBER MARIBEL SCHWARTZ [phone].
[2023-02-09 15:12] VITALS: BP 130/67
[2023-02-09 21:00] VITALS: BP 123/71
--- NOTE | 2023-02-10 05:14 | NUR ---
ASSUMED CARE OF PT AT 1900 LAST NIGHT. PT ALERT AND ORIENTED X 4, NO ACUTE EVENTS T/O THE SHIFT. PT SLEPT WITH CPAP ON, TOLERATED WELL. PT HAD NO COMPLAINTS OR CONCERNS, VSS. PT ABLE TO USE CALL LIGHT FOR NEEDS, CALL LIGHT IN REACH, WILL CONTINUE TO MONITOR AND GIVE REPORT TO AM RN.
[2023-02-10 05:34] VITALS: BP 132/70
[2023-02-10 08:18] VITALS: BP 118/65
--- NOTE | 2023-02-10 08:42 | NUR ---
AM NOTE: PATIENT ALERT AND ORIENTED X4. SOFT SPOKEN. STATES HE DID NOT GET ANY SLEEP LAST NIGHT AND IS VERY TIRED. UP WITH ONE PERSON AND FRONT WHEEL WALKER. OVERALL WEAK. PERRLA. DENIES NUMBNESS/TINGLING. ON ROOM AIR SATING ABOVE 95%. LUNGS SOUNDING CLEAR AND DIM IN BASES. DENIES SOB/COUGH. TELE SHOWING SR WITH HR 60-80'S. BP STABLE. DENIES CHEST PAIN/PRESSURE/PALPITATIONS. PPP. PARTIAL ECHO COMPLETED THIS AM. DENIES ABDOMINAL PAIN/NAUSEA. EATING AND VOIDING WNL. BOWEL TONES PRESENT. SKIN OVERALL C/D/I WITH SCATTERED BRUISING. CALL LIGHT IN REACH. PATIENT COMPLETED BREAKFAST AND NOW WANTING TO TRY AND GO BACK TO SLEEP. DENIES NEEDS.
[2023-02-10 12:02] VITALS: BP 125/61
--- NOTE | 2023-02-10 12:07 | NUR ---
PATIENT FEELING DEPRESSED AND SAD THIS AFTERNOON. THIS RN ENCOURAGED PATIENT TO GET UP IN CHAIR, OPEN BLINDS AND EAT LUNCH. PATIENT REFUSED. PATIENT STATES HE IS JUST READY TO BE WITH GOD. THIS RN SAT WITH PATIENT AND DISCUSSED FEELINGS OF WANTING TO GIVE UP AND NOT TAKE MEDICATIONS, PATIENT ALSO DISCUSSED THE SADNESS SURROUNDING LACK OF FAMILY INVOLVMENT IN HIS LIFE AND HOW HIS KIDS ARE NOT INVOLVED. THIS RN PROVIDED POSITIVE FEEDBACK AND ENCOURAGEMENT BUT ALSO VOICED UNDERSTANDING. PATIENT REFUSING LUNCH AND AFTERNOON MEDS. PASTORAL CARE CALLED, NO ONE ON SERVICE TODAY. SPIRITUAL CONSULT PLACED FOR TOMORROW. AFTERNOON VITALS STABLE.
--- NOTE | 2023-02-10 12:42 | NUR ---
THIS RN UPDATED PALLIATIVE CARE RN BEKA ABOUT PATIENT BEING SAD AND FEELING DEPRESSED. PLAN FOR PALLIATIVE CARE TO SEE PATIENT.
[2023-02-10 15:30] VITALS: BP 108/81
--- NOTE | 2023-02-10 16:05 | NUR ---
called by nursing to see pt. States he is having great stress and expressions of doom and grief. Met with pt he is aggitated and some repatative statements. He is distraught at the lack of involvement with his children in their care needs. He states he feels he is declining and may not live much longer. He is upset his wont go with him to assisted living. He is upset his children have not come to help. Assesment of symptoms. He is doing some frequent rocking movements and head swinging. He states he has been falling and hiving disequilibrium. He feels of balance. he denies nausa, no appetite. No genraized pain. Some mild dyspnea. No itching. He states he cannot sleep and feels very fatigued. He has not been smoking his pipe because he cannot make it to the garage. He is repeative of Im not right and things are not ok. Not interested in medications. Called his to discuss care. She states he has been becoming more frail and stressing that they need help. has had recent polyp surgery and the tood some precancerous polyps. She needs to go to [facility] for a more advanced procedure. Asked her how she is going to get there and who will help she stated possibly her caregiver. Asked about assited living and getting more support. She became very angry. She recieved a call on the other line from one of her children. Ended call will follow up. Reported symptom to chidi for follw up with physician. pt PPS score is 40%. Will follow up with physician on plan of care. Nursing will contact phsycician.
--- NOTE | 2023-02-10 17:30 | NUR ---
TRANSFER TO [facility] 310, REPORT GIVEN TO YANDEL. PATIENT UPSET ABOUT TRANSFER. THIS RN EDUCATED ON MEDICAL STATUS AT TIME OF STATUS CHANGE AND WARNED PATIENT THIS MORNING IT COULD HAPPEN TODAY. PATIENT UPSET AND NOT WANTING TO MOVE AND STATED "I REFUSE TO MOVE". THIS RN EXPLAINED THE ROOM WAS NEEDED FOR A PATIENT THAT WAS IN MORE NEED OF CRITICAL CARE. PATIENT STATED THIS RN WAS LYING AND HE DID NOT TRUST ANYTHING THIS RN WAS SAYING. NO ACUTE CHANGES TO VITALS OR PRESENTATION. PATIENT COMPLAINED OF HIP PAIN AROUND 1430, TYLENOL GIVEN PER EMAR, PATIENT REFUSING OTHER INTERVENTIONS. PATIENT REFUSING TO GET UP FOR MEALS OR CHANGE ATTENDS THIS AFTERNOON. THIS RN ASSISTED PATIENT IN CALLING THIS AFTERNOON. REMAINS ON ROOM AIR, NO TELE EVENTS. BP STABLE. CPAP TAKEN WITH TRANSFER [facility]. THIS RN REPORTED OFF ABOUT ZIO PATCH NEEDING TO BE PLACED TOMORROW/PRIOR TO DISCHARGE WHEN SNF BED OPENS UP.
--- NOTE | 2023-02-10 18:22 | NUR ---
SHIFT SUMMARY 1500 ASSUMED CARE OF PT. TX'D FROM PCU TO [facility] 310. PT VERY UPSET AND DEPRESSED ABOUT HIS HEALTH STATUS AND NOT BEING ABLE TO CARE FOR HIMSELF AT HOME. LISTENED TO PT AT LENGTH. OFFERED SPIRITUAL CARE VISIT; PT DECLINED AT THIS TIME. PT TO RECEIVE ZIO PATCH IN AM AND D/C TO SNF, PER REPORT. DENIED FURTHER NEEDS AT THIS TIME. REQUESTING LIGHT OUT AND DOOR CLOSED. USED URINAL IN BED. CALL LT IN REACH.
[2023-02-10 20:42] VITALS: BP 125/64
--- NOTE | 2023-02-11 04:38 | NUR ---
PT ALERT BUT VERY DEPRESSED REAGARDING HIS SITUATION. TALKED WITH PT ABOUT THE WAY HE WAS FEELING AND HE STATED HE FEELS LIKE EVERYONE IS TRYING TO GET RID OF HIM. BOTH HIM AND HIS QUALIFIED FOR ASSISTED LIVING BUT THE DOES NOT WANT TO GO. PT AWAITING RECOMMENDED SNF PLACEMENT AT THIS TIME. PT DENIES ANY CP OR PRESSURE. ROOM AIR WHILE AWAKE AND CPAP WHILE ASLEEP. PT NEEDS ZIO PATCH PLACED. [facility]ART [facility]ENTER TO BE NOTIFIED FIRST THING IN THE MORNING. WILL PASS OFF TO ONCOMING NURSE. TELEMETRY: SR @75. BED KEPT IN THE LOWEST POSITION WITH CALL LIGHT WITHIN REACH. WILL CONTINUE TO MONITOR.
[2023-02-11 05:34] VITALS: BP 125/72
[2023-02-11 07:31] VITALS: BP 124/62
[2023-02-11 10:38] VITALS: BP 114/55
[2023-02-11] MEDS ORDERED: COLCHICINE0.6 MG PO (14:27)
--- NOTE | 2023-02-11 14:28 | NUR ---
Patient is lying in bed and alert. He tells me about his medical issues, he sees people walking by his third story room working on the window (there were no people and no access to that window). He then is clear again talking about his life, his education, his son and his hopes to go home. 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 I provide therapeutic listening and prayer. Patient responded well and showed signs of being encouraged. I will continue to remain available to patient and family
[2023-02-11 14:54] VITALS: BP 105/71
--- NOTE | 2023-02-11 16:30 | NUR ---
Debra immediately tells me about his challenging last yr and the medical issues that have hit him so hard. He talks about his spouse of 65 yrs and his the healthcare recruiter support they both have at home. He talks about his family and his Alevism ivan. I normalize his experience, reinforce his helpful attitudes and provide therapeutic listening, gentle certified alcohol and drug counselor and prayer. Patient responded well and showed signs of an elevated mood.
--- NOTE | 2023-02-11 16:51 | NUR ---
DISCHARGE NOTE: DISCHARGE DISCUSSED WITH PATIENT. SOMEONE FROM THE [facility]ART CENTER CAME AND APPLIED PATIENT'S ZIO PATCH AND INSTRUCTED PATIENT ON DEVICE AND FOLLOW UP. RETURN SUPPLIES AND INSTRUCTIONS PROVIDED TO PATIENT ALONG WITH OTHER DISCHARGE PAPERS. HIS IV AND TELEMETRY WERE REMOVED AND BELONGINGS COLLECTED. HE WAS TAKEN DOWN VIA WHEELCHAIR BY CLOTH HAND STUDENT TO BE TAKEN HOME BY TAXYusuf, SUNI REFUSED TO TAKE PATIENT DUE TO REQUIRING THE PATIENT TO BE PUSHED UP HIS DRIVEWAY VIA WHEELCHAIR. THIS WAS NOT A KNOWN ISSUE PRIOR TO DISCHARGING PATIENT. PATIENT WAS ABLE TO CONTACT FRIEND MILKA TO COME GET PATIENT AND TAKE HIM HOME. MILKA ARRIVED AT THE ADMITTING ENTERANCE AND PICKED UP PATIENT. NO SIGNS OR SYMPTOMS OF PATIENT DISTRESS DURING DISCHARGE.
== END 2023-02-11 15:43 | disposition home health service (06) ==
LOC: ER 14:33 → PCU 14:34 → MEDS 14:34 → PCU 14:34 → MEDS 02-10 17:19
PROVIDERS: Emergency Medicine; ADMIT Student in an Organized Health Care Education/Training Program
DX: I31.9 Disease of pericardium, unspecified (principal); I49.5 Sick sinus syndrome; N18.30 Chronic kidney disease, stage 3 unspecified; G20.A1 Parkinson's disease without dyskinesia, without mention of fluctuations; K21.9 Gastro-esophageal reflux disease without esophagitis; M10.9 Gout, unspecified; G47.33 Obstructive sleep apnea (adult) (pediatric); F32.A Depression, unspecified; I82.509 Chronic embolism and thrombosis of unspecified deep veins of unspecified lower extremity; Z79.01 Long term (current) use of anticoagulants; I31.39 Other pericardial effusion (noninflammatory); R32 Unspecified urinary incontinence; D63.1 Anemia in chronic kidney disease
CPT/HCPCS: 36415; 71046; 71260; 80053; 82272; 83735; 84484; 85025; 93005; 93010; 93246; 93308; 93321; 94660; 94762; 96361; 96374-59; 97110; 97116; 97161; 97165; 97530; 97535; 99285-25; A9270; C8929; G0378; J2270; J7030; J7512; Q9957; Q9967

== ENCOUNTER 2023-03-25 23:42 | Inpatient (IN) | payer OTHER ==
[~2023-03-25] VITALS: Ht 172.7 cm; Wt 78.0 kg
[~2023-03-25 23:42] MED LIST changes: +COLCHICINE0.6 MG PO
[2023-03-26] VITALS (8 sets, daily range): BP systolic 96–116; BP diastolic 51–81
[2023-03-26 00:18] LABS: BASOPHILS ABSOLUTE AUTO 0.04 K/mm3 (0.00-0.23); BASOPHILS PERCENT AUTO 1 % (0-2); EOSINOPHILS ABSOLUTE AUTO 0.07 K/mm3 (0.00-0.68); EOSINOPHILS PERCENT AUTO 1 % (0-6); Hematocrit 21.1 % (37.0-53.0); Hemoglobin 6.8 g/dL (13.5-17.5); IMMATURE GRAN ABSOLUTE AUTO 0.02 K/mm3 (0.00-0.10); IMMATURE GRAN PERCENT AUTO 0 % (0-1); LYMPHOCYTES ABSOLUTE AUTO 1.98 K/mm3 (0.84-5.20); LYMPHOCYTES PERCENT AUTO 28 % (21-46); MONOCYTES ABSOLUTE AUTO 0.84 K/mm3 (0.16-1.47); MONOCYTES PERCENT AUTO 12 % (4-13); Mean Corpuscular HGB 31.6 pg (26.0-34.0); Mean Corpuscular HGB Conc 32.2 g/dL (31.5-36.5); Mean Corpuscular Volume 98 fL (80-100); Mean Platelet Volume 9.4 fL (9.1-12.4); NEUTROPHILS ABSOLUTE AUTO 4.25 K/mm3 (1.96-9.15); NEUTROPHILS PERCENT AUTO 59 % (41-73); Platelet Count 343 K/mm3 (150-400); RDW Coefficient Variation 15.3 % (11.7-14.2); Red Blood Cell Count 2.15 M/mm3 (4.30-5.90)
[2023-03-26 00:45] LABS: Magnesium, Blood 1.5 mg/dL (1.6-2.4)
[2023-03-26 00:57] LABS: Bicarbonate Venous 22.9 mmol/L (24.0-30.0); PCO2 Venous 34.5 mmHg (38-42); pH Blood Venous 7.42 (7.34-7.37)
[2023-03-26 00:59] LABS: International Normalized Ratio 1.25
[2023-03-26 01:05] LABS: Alanine Aminotransfer (ALT/SGP <6 U/L (12-78); Albumin, Blood 2.4 g/dL (3.4-5.0); Albumin/Globulin Ratio 0.6 (0.8-1.8); Alk Phos 67 U/L (50-136); Anion Gap 7 mmol/L (6-16); Aspartate Aminotrans (AST/SGOT 13 U/L (12-37); Bilirubin, Total 0.3 mg/dL (0.1-1.0); Blood Urea Nitrogen 36 mg/dL (8-24); Bun/Creatinine Ratio 22.9 (12.0-20.0); CO2, Blood 23 mmol/L (21-32); Calcium, Blood 8.2 mg/dL (8.5-10.1); Chloride, Blood 113 mmol/L (98-108); Creatinine, Blood 1.57 mg/dL (0.60-1.20); Globulin, Blood 4.2 g/dL (2.2-4.0); Glomerular Filtration Rate 43 (60-); Glucose, Blood 120 mg/dL (70-99); Phosphorus, Blood 2.7 mg/dL (2.5-4.9); Potassium, Blood 3.4 mmol/L (3.5-5.5); Sodium, Blood 143 mmol/L (136-145); Total Protein, Blood 6.6 g/dL (6.4-8.2)
[2023-03-26 01:48] LABS: Influenza A Negative (NEGATIVE); Influenza B Negative (NEGATIVE)
[2023-03-26 01:52] LABS: SARS-Cov-2 (COVID-19) PCR, MMC NEGATIVE (NEGATIVE)
[2023-03-26 02:07] LABS: Hematocrit 19.4 % (37.0-53.0); Hemoglobin 6.4 g/dL (13.5-17.5)
[2023-03-26 04:07] LABS: Source, Urine Clean Catch
[2023-03-26 04:27] LABS: Bilirubin, Urine Neg (Neg); Blood, Urine 1+ (Neg); Glucose Qualitative, Urine Neg (Neg); Ketones, Urine Neg (Neg); Leukocyte Esterase, Urine Neg (Neg); Nitrite, Urine Neg (Neg); Protein, Urine 2+ (Neg); Specific Gravity, Urine 1.015 (1.003-1.022); Urobilinogen, Urine NORM (Normal)
[2023-03-26 04:35] LABS: Appearance, Urine Clear (Clear); Color, Urine Yellow (P-Yellow)
[2023-03-26 04:37] LABS: Bacteria Few /hpf; Hyaline Casts 0-2 /lpf (0-2); Red Blood Cells, Urine 0-2 /hpf (0-2); Squamous Epithelial Cells Not Seen /hpf (Few); White Blood Cells, Urine 0-2 /hpf (0-5)
[2023-03-26 06:36] LABS: Hematocrit 21.5 % (37.0-53.0); Hemoglobin 7.1 g/dL (13.5-17.5)
--- NOTE | 2023-03-26 06:46 | NUR ---
ARRIVAL TO UNIT/SHIFT SUMMARY PATIENT ARRIVED TO UNIT AT APPROX 0600. PATIENT TRANSFERRED FROM ED RNEY TO BED VIA SLIDER SHEET. PATIENT IS ALERT AND ORIENTED X4. PRIOR DIAGNOSIS OF PARKINSON's. PATIENT EXPERIENCES DIFFICULTY ANSWERING QUESTIONS. SLOW WITH COMMUNICATION AND MOBILITY. MILD TREMORS NOTED. TELEMETRY SHOWING SINUS 70's. BP STABLE, SBP 110's. MAP >65. DENIES CHEST PAIN, PRESSURE. IS CURRENTLY ON 3L VIA NASAL CANNULA, SATS >90%. EXPERIENCES DYSPNEA WITH EXERTION. INCONTINENT OF STOOL AND URINE. PARTIAL BEDBATH AND ATTENDS CHANGE PERFORMED. RECEIVED ONE UNIT OF PRBC's PRIOR TO ARRIVAL IN ED. SECOND UNIT READY TO BE ADMINISTERED. CALL LIGHT IN REACH. WILL REPORT TO ONCOMING RN.
[2023-03-26 06:49] LABS: Calcium, Blood 8.4 mg/dL (8.5-10.1); Creatinine, Blood 1.48 mg/dL (0.60-1.20); Potassium, Blood 3.2 mmol/L (3.5-5.5)
--- NOTE | 2023-03-26 07:43 | NUR ---
AM NOTE... ASSUMED CARE OF PT AT 0700, PT IS A&Ox4, HE IS SLEEPY BUT WAKES EASILY TO VERBAL STIMULI. PT STATES HE FEELS "MUCH BETTER" THAN WHEN HE FIRST CAME TO THE HOSPITAL. HE IS IN SR W/OCC PVCs IN THE 70'S-80'S BP IS SOFT BUT STABLE WITH MAPS>65. PT HAS 4+ EDEMA NOTED TO HIS BLE. PT DENIES ANY CHEST PAIN/PRESSURE AND FEELS HIS SOB HAS IMPROVED FROM EARLIER. HE IS ON 2L NC WITH O2 SATS>95% L/S CLEAR T/O DIM IN THE BASES. BT PRESENT AND NORMOACTIVE, ABD IS SOFT AND NONTENDER TO PALPATION PT DENIES ABD PAIN AT THIS TIME. 1UNIT OF PRBCs WAS GIVEN IN THE ED AN ADDITIONAL UNIT IS ORDERED TO BE GIVEN, WILL CONTINUE TO MONITOR.
--- NOTE | 2023-03-26 08:44 | NUR ---
PT UPDATE.... THE PT WAS VERY ANXIOUS ABOUT TAKING HIS HOME MEDICATION STALEVO FOR HIS PARKINSONS, PER THE PHARMACY THE HOSPITAL DOES NOT CARRY HIS PARTICULAR DOSE. THIS RN INFORMED THE PT THAT THE HOSPTIAL DID NOT HAVE THIS MEDICATION BUT THAT THIS RN WOULD CALL THE PROVIDER AND ATTEMPT TO FIND A SOLUTION. THE PT THEN SAID "I CAN'T BELIEVE YOU DON'T HAVE THIS MEDICATION AND THAT YOU WOULD WITHOLD MY MEDS FROM ME I'M CALLING MY GAMBLING FLOOR SUPERVISOR!" THIS RN INFORMED THE PT THAT WE COULD NOT GIVE MEDICATIONS THAT WERE NOT HERE IN THE HOSPITAL AND ASKED IF HE HAD SOMEONE THAT COULD BRING IN HIS MEDICATIONS. THE PT STATED AGAIN "THATS OKAY MY LAYWER WILL TAKE CARE OF THIS!" THIS RN SPOKE WITH THE PROVIDER WHO CAME TO THE ROOM. THIS RN SPOKE WITH THE PROVIDER ABOUT POSSIBLE SOULTIONS AND THE PROVIDER ORDERED A DOSE OF SINEMET 25-50 AND STALEVO 25-100-200 TO EQUAL WHAT HE WOULD TAKE AT HOME. WHEN THIS RN WENT INTO THE ROOM TO GIVE THESE MEDICATIONS ALONG WITH HIS OTHER AM MEDICATIONS THE PT REFUSED TO TAKE THEM STATING "I CAN'T TRUST YOU OR ANYONE ELSE IN THIS HOSPITAL AND IF I COULD LEAVE HERE I WOULD!" THIS RN INFORMED THE PT OF HIS PT RIGHTS AND THAT HE COULD LEAVE THE HOSPITAL AT ANY TIME, THAT THE MEDICATIONS THE HOSPITAL HAD AVAILABLE WOULD EQUAL WHAT HE TAKES AT HOME BUT IF HE WANTED TO WAIT FOR HIS HOME MEDICATIONS THAT WAS HIS RIGHT WELL. NURSE SUPERVISOR CONCRETE STONE FABRICATING AND PROVIDER NOTIFIED. WILL CONTINUE TO MONITOR.
[2023-03-26 15:15] LABS: Hematocrit 24.6 % (37.0-53.0); Hemoglobin 8.2 g/dL (13.5-17.5)
--- NOTE | 2023-03-26 17:53 | NUR ---
SHIFT SUMMARY.... PT CONTINUES TO HAVE EPISODES OF TEARFUL ANXIETY AND AGITATION, PT CONTINUES TO STATE "I JUST WISH I COULD TRUST YOU PEOPLE NOT TO LIE TO ME ABOUT EVERYTHING." THIS RN ATTEMPTED TO PROVIDER THERAPEUTIC COMMUNICATION TO THE PT BUT HE BECAME MORE AGITATED AND PARANOID. THE PT STATED HE WANTED TO LEAVE AMA. DR. YOUSSEF WAS NOTIFIED AND CAME TO ASSESS THE PT. AFTER THE CONVERSATION WITH THE PROVIDER THE PT AGREED TO STAY AT THIS TIME. THE PT CONTINUES TO MAKE COMMENTS THAT "NO ONE LOVES ME OR CARES ABOUT ME." THE PT CONTINUES TO REBUFF ALL ATTEMPTS AT THERAPEUTIC COMMUNICATION BY THIS RN AND OTHER STAFF. THE PT WAS PLACED ON A CLEAR LIQUID DIET PER DR. ANDERSON. THE PT REFUSED THE PRN SEROQUEL ORDERED BY DR. DIAZ. WILL CONTINUE TO MONITOR UNTIL REPORT IS GIVEN TO ONCOMING RN.
[2023-03-26 18:06] LABS: Percent Saturation 34.5 % (20.0-50.0)
--- NOTE | 2023-03-26 23:49 | NUR ---
ASSUMPTION OF CARE: THIS RN ASSUMED CARE OF PT AT APPROX 1915. PT RESTING IN BED, WAKES W/ VERBAL STIMULI. FLAT AFFECT NOTED W/ MUMBLED, SOFT VOICE. PT VOICED FRUSTRATION W/ MEDICATION ISSUES EARLIER IN THE DAY BUT WAS AGREEABLE TO TAKING PM MEDS ORDERED. VSS, ON RA WITH SPO2 >90%. INDEPENDENTLY REPOSITIONING SELF IN BED. CALL LIGHT WITHIN REACH, BED ALARM ON FOR SAFETY/FALL PREVENTION.
[2023-03-27 00:43] VITALS: BP 108/71
[2023-03-27 03:43] VITALS: BP 120/72
[2023-03-27 04:01] LABS: BASOPHILS ABSOLUTE AUTO 0.05 K/mm3 (0.00-0.23); BASOPHILS PERCENT AUTO 1 % (0-2); EOSINOPHILS ABSOLUTE AUTO 0.14 K/mm3 (0.00-0.68); EOSINOPHILS PERCENT AUTO 2 % (0-6); Hemoglobin 7.8 g/dL (13.5-17.5); IMMATURE GRAN ABSOLUTE AUTO 0.03 K/mm3 (0.00-0.10); IMMATURE GRAN PERCENT AUTO 1 % (0-1); LYMPHOCYTES ABSOLUTE AUTO 1.41 K/mm3 (0.84-5.20); LYMPHOCYTES PERCENT AUTO 22 % (21-46); MONOCYTES ABSOLUTE AUTO 0.72 K/mm3 (0.16-1.47); MONOCYTES PERCENT AUTO 11 % (4-13); Mean Corpuscular HGB 31.2 pg (26.0-34.0); Mean Corpuscular HGB Conc 33.9 g/dL (31.5-36.5); Mean Platelet Volume 8.6 fL (9.1-12.4); NEUTROPHILS ABSOLUTE AUTO 4.03 K/mm3 (1.96-9.15); NEUTROPHILS PERCENT AUTO 63 % (41-73); Platelet Count 324 K/mm3 (150-400); RDW Coefficient Variation 18.8 % (11.7-14.2); RDW Standard Deviation 63.8 fL (35.1-46.3); White Blood Cell Count 6.38 K/mm3 (4.00-11.30)
[2023-03-27 04:34] LABS: Magnesium, Blood 1.8 mg/dL (1.6-2.4)
--- NOTE | 2023-03-27 04:45 | NUR ---
END OF SHIFT NOTE: PT CONTINUES TO DISPLAY FLAT AFFECT, ONLY ENGAGING W/ STAFF WHEN VERBALLY PROMPTED TO DO SO. ABLE TO ANSWER QUESTIONS APPROPRIATELY, HOWEVER, MAKES ODD STATEMENTS AT TIMES THAT ARE NOT CONSISTENT W/ CURRENT CONVERSATION/SITUATION. AGREEABLE W/ CARE PROVIDED. PT AGREED TO TAKE PO SEROQUEL PRIOR TO BEDTIME, ABLE TO SLEEP W/O EPISODES OF AGITATION/ANXIETY OVERNIGHT. HR 70-80'S, SINUS ON TELE. SBP 90-120'S, MAP >65. DENIES CHEST PAIN/PRESSURE. SPO2 >93% ON RA-2L O2 VIA NC, CPAP WHILE SLEEPING. AFEBRILE. CLEAR LIQUID DIET REMAINS IN PLACE, MINIMAL PO INTAKE OVERNIGHT. ATTENDS IN PLACE, PT ABLE TO VOID INDEPENDENTLY IN URINAL. NO OTHER NEEDS AT THIS TIME. CALL LIGHT WITHIN REACH, BED IN LOWEST POSITION. BED ALARM ON FOR PT SAFETY. WILL REPORT TO ONCOMING RN.
[2023-03-27 05:00] LABS: Alanine Aminotransfer (ALT/SGP <6 U/L (12-78); Albumin, Blood 2.2 g/dL (3.4-5.0); Albumin/Globulin Ratio 0.6 (0.8-1.8); Alk Phos 63 U/L (50-136); Anion Gap 3 mmol/L (6-16); Aspartate Aminotrans (AST/SGOT 8 U/L (12-37); Bilirubin, Total 0.5 mg/dL (0.1-1.0); Blood Urea Nitrogen 28 mg/dL (8-24); Bun/Creatinine Ratio 21.4 (12.0-20.0); CO2, Blood 24 mmol/L (21-32); Calcium, Blood 8.4 mg/dL (8.5-10.1); Chloride, Blood 117 mmol/L (98-108); Creatinine, Blood 1.31 mg/dL (0.60-1.20); Globulin, Blood 3.8 g/dL (2.2-4.0); Glomerular Filtration Rate 53 (60-); Glucose, Blood 94 mg/dL (70-99); Phosphorus, Blood 2.9 mg/dL (2.5-4.9); Potassium, Blood 3.5 mmol/L (3.5-5.5); Sodium, Blood 144 mmol/L (136-145)
[2023-03-27 05:29] LABS: Mean Corpuscular Volume 92 fL (80-100)
[2023-03-27 07:39] VITALS: BP 102/51
[2023-03-27 12:09] VITALS: BP 106/60
--- NOTE | 2023-03-27 15:22 | NUR ---
Spiritual care visit conducted. Patient is lying in bed and alert. Patient's friend, Reynalod is bedside. Patient explains about his poor diagnosis and the concerns he has going forward. Patient is weepy when talking about his spouse, about the family unit complications and about the harsh reality of needing to go into an assisted living facility. Patient requests prayer and tells me that he desperately needs God's help. I gladly provide prayer as well as encouragement, therapeutic listening and gentle sexual assault counselor. Patient responded well and showed signs of reduced stress. I will continue to remain available to patient and family
[2023-03-27 16:31] VITALS: BP 108/63
--- NOTE | 2023-03-27 17:14 | NUR ---
SHIFT SUMMARY NO ACUTE CHANGES THIS SHIFT. PT HAD A GREAT DAY, A&OX4. SP02>90% ON RA. TELEMETRY SHOWS NSR, HR 70'S. BP SOFT, 100'S SBP. PT USED URINAL TO VOID. NO BM THIS SHIFT. C/O OF BACK PAIN, REPOSITIONED Q2H. WORKED W/ OT THIS SHIFT, GOT UP TO RECLINER 1 PERSON ASSIST FWW GB. PT'S FRIEND CAME TO VISIT THIS AFTERNOON AND PT SEEMED ENCOURAGED BY THIS. CALLED FOR UPDATE. PT REMAINED ON CLEAR LIQUID DIET. CALL LIGHT IN REACH. PT RESTING IN ROOM.
[2023-03-27 19:22] VITALS: BP 128/64
--- NOTE | 2023-03-27 20:01 | NUR ---
ASSUMPTION OF CARE: THIS RN ASSUMED CARE OF PT AT APPROX 1915. PT ALERT, ORIENTED X4 ON INTERACTION. PT SMILING, CONVERSANT W/ STAFF. DR. ANDERSON TO BEDSIDE, PT STATES THAT HE IS AGREEABLE TO SCOPE TOMORROW; DR. ANDERSON STATES HE WILL PLACE ORDERS. VSS, PT ON RA AT THIS TIME. ABLE TO VOID IN URINAL. NO OTHER NEEDS AT THIS TIME, CALL LIGHT WITHIN REACH. BED ALARM ON FOR PT SAFETY.
[2023-03-28] VITALS (15 sets, daily range): BP systolic 83–135; BP diastolic 52–90
[2023-03-28 03:58] LABS: BASOPHILS ABSOLUTE AUTO 0.04 K/mm3 (0.00-0.23); BASOPHILS PERCENT AUTO 1 % (0-2); EOSINOPHILS ABSOLUTE AUTO 0.08 K/mm3 (0.00-0.68); EOSINOPHILS PERCENT AUTO 1 % (0-6); Hematocrit 25.5 % (37.0-53.0); Hemoglobin 8.5 g/dL (13.5-17.5); IMMATURE GRAN ABSOLUTE AUTO 0.02 K/mm3 (0.00-0.10); IMMATURE GRAN PERCENT AUTO 0 % (0-1); LYMPHOCYTES ABSOLUTE AUTO 1.52 K/mm3 (0.84-5.20); LYMPHOCYTES PERCENT AUTO 22 % (21-46); MONOCYTES ABSOLUTE AUTO 0.68 K/mm3 (0.16-1.47); MONOCYTES PERCENT AUTO 10 % (4-13); Mean Corpuscular HGB 30.9 pg (26.0-34.0); Mean Corpuscular HGB Conc 33.3 g/dL (31.5-36.5); Mean Corpuscular Volume 93 fL (80-100); Mean Platelet Volume 8.9 fL (9.1-12.4); NEUTROPHILS ABSOLUTE AUTO 4.51 K/mm3 (1.96-9.15); NEUTROPHILS PERCENT AUTO 66 % (41-73); Platelet Count 376 K/mm3 (150-400); RDW Coefficient Variation 18.5 % (11.7-14.2); RDW Standard Deviation 62.1 fL (35.1-46.3); Red Blood Cell Count 2.75 M/mm3 (4.30-5.90); White Blood Cell Count 6.85 K/mm3 (4.00-11.30)
[2023-03-28 04:26] LABS: Albumin, Blood 2.2 g/dL (3.4-5.0); Anion Gap 3 mmol/L (6-16); Blood Urea Nitrogen 28 mg/dL (8-24); Bun/Creatinine Ratio 21.1 (12.0-20.0); CO2, Blood 24 mmol/L (21-32); Calcium, Blood 8.6 mg/dL (8.5-10.1); Chloride, Blood 116 mmol/L (98-108); Creatinine, Blood 1.33 mg/dL (0.60-1.20); Glomerular Filtration Rate 52 (60-); Glucose, Blood 114 mg/dL (70-99); Magnesium, Blood 1.6 mg/dL (1.6-2.4); Phosphorus, Blood 2.8 mg/dL (2.5-4.9); Potassium, Blood 3.7 mmol/L (3.5-5.5); Sodium, Blood 143 mmol/L (136-145)
--- NOTE | 2023-03-28 05:26 | NUR ---
END OF SHIFT NOTE: PT ALERT, ORIENTED X3-4 THIS EVENING; PT VOICED CONFUSION AFTER WAKING THIS AM, STATES HE WAS UNSURE WHERE HE WAS AT. REORIENTED, ABLE TO REMEMBER THAT HE WAS AT "[facility] PT BECAME ANXIOUS & AGITATED STARTING AROUND 0100, FRUSTRATED & FIXATED ON "NOT BEING ABLE TO SLEEP" OVERNIGHT; PT WAS ABLE TO SLEEP FROM APPROX [id number] W/ SCHEDULED SEROQUEL PER EMAR. MEDICATED W/ PRN SEROQUEL PER EMAR. UP TO CHAIR THIS AM PER PT REQUEST W/ 1P MINIMAL ASSIST & WALKER, HOWEVER, PT WAS SIGNIFICANTLY WEAKER AMBULATING BACK TO BED & REQUIRING 2P MOD-MAX ASSIST W/ FWW. VITAL SIGNS REMAIN STABLE. ORDERS IN PLACE FOR WATER/ICE CHIPS AT 0900 & NPO AT [address] ANDERSON FOR SCOPE THIS PM. MIXED VOIDS IN URINAL & INCONTINENT VOIDS, ATTENDS CHANGED TO KEEP C/D/I. NO BM'S. NO OTHER NEEDS AT THIS TIME. CALL LIGHT WITHIN REACH, BED IN LOWEST POSITION. BED ALARM ON FOR PT SAFETY. WILL REPORT TO ONCOMING RN.
--- NOTE | 2023-03-28 15:17 | NUR ---
Spiritual care visit conducted. Patient immediately tells me that he is frustrated. He is upset that he couldn't have water and then he could, he is angry that his would not come see him even when a ride was provided for her and he voices his disappointed that the pieces are not in place for a successful transfer home. He admits that he is so angry at his that he would rather go to a SNF than go home (while yesterday he was tearful about the very topic of having to go to a SNF). He received a call form his dtr, at this time, and we were unable to continue our discussion. I will attempt later to explore some of these feelings deeper. I will continue to remain available to patient and family.
--- NOTE | 2023-03-28 18:29 | NUR ---
SHIFT SUMMARY PT ALERT, ORIENTED, IRRITABLE TODAY. PT STATES, "DO YOU SEE SOMEONE IN THOSE CHAIRS?" RN REPLIES, "NO, DO YOU?" PT STATES, "NO, THATS THE PROBLEM. THERE SHOULD BE SOMEONE." PT TEARFUL ABOUT HAVING ENDOSCOPY WITH OUT FAMILY PRESENT. SP02>90% ON RA. TELEMTRY SHOWS NSR, HR MOSTLY 80'S. BP SOFT. PT USED URINAL TO VOID WELL INCONTINENT VOID. BED CHANGED, LINEN CHANGED. NO BM THIS SHIFT. REPOSITIONED Q2H. PT DOWN AT ENDOSCOPY AT 1800.
--- NOTE | 2023-03-28 18:41 | NUR ---
History, Chart, Medications and Allergies reviewed before start of procedure. Pre-Op teaching done. Pt verbalizes understanding. Patient confirms NPO status and agrees with scheduled surgery.
--- NOTE | 2023-03-28 19:20 | NUR ---
03/28/231919 Bindu Haile History, Chart, Medications and Allergies reviewed before start of procedure.MONITOR INTACT WITH CONTINUOUS PULSE OXIMETRY, CONTINUOUS END TITAL CO2, AND INTERMITTENT BLOOD PRESSURE.3-LEAD EKG REVIEWED WITH PHYSICIAN PRIOR TO START OF PROCEDURE.O2 VIA N/C INTACT THROUGHOUT SEDATION/PROCEDURE.Bite Block Placed.DR. STRUASS PROVIDING MAC.
--- NOTE | 2023-03-28 20:13 | NUR ---
PT ARRIVED BACK TO PCU FOLLOWING SCOPE AT APPROX 1954. REPORT TAKEN FROM MARIA TERESA JONES. PT IS ALERT, CONVERSANT W/ STAFF. SPEECH IS SLOW BUT COHERANT. ON ROOM AIR, SPO2 >90%. VSS. SLID BACK TO BED FROM [facility] BY STAFF; FULL LINEN CHANGE, BRIEF CHANGE. NO OTHER NEEDS AT THIS TIME, CALL LIGHT IN REACH & BED ALARM ON FOR PT SAFETY. CALL PLACED TO , WILLARD, W/ UPDATE.
[2023-03-29] VITALS: BP 105/62
[2023-03-29 03:20] VITALS: BP 97/61
[2023-03-29 04:41] LABS: BASOPHILS ABSOLUTE AUTO 0.05 K/mm3 (0.00-0.23); BASOPHILS PERCENT AUTO 1 % (0-2); EOSINOPHILS ABSOLUTE AUTO 0.08 K/mm3 (0.00-0.68); EOSINOPHILS PERCENT AUTO 1 % (0-6); Hematocrit 25.3 % (37.0-53.0); Hemoglobin 8.1 g/dL (13.5-17.5); IMMATURE GRAN ABSOLUTE AUTO 0.02 K/mm3 (0.00-0.10); IMMATURE GRAN PERCENT AUTO 0 % (0-1); LYMPHOCYTES ABSOLUTE AUTO 1.29 K/mm3 (0.84-5.20); LYMPHOCYTES PERCENT AUTO 21 % (21-46); MONOCYTES ABSOLUTE AUTO 0.62 K/mm3 (0.16-1.47); MONOCYTES PERCENT AUTO 10 % (4-13); Mean Corpuscular HGB 30.2 pg (26.0-34.0); Mean Corpuscular Volume 94 fL (80-100); Mean Platelet Volume 9.2 fL (9.1-12.4); NEUTROPHILS ABSOLUTE AUTO 4.14 K/mm3 (1.96-9.15); NEUTROPHILS PERCENT AUTO 67 % (41-73); Platelet Count 350 K/mm3 (150-400); RDW Coefficient Variation 17.9 % (11.7-14.2); RDW Standard Deviation 61.6 fL (35.1-46.3); Red Blood Cell Count 2.68 M/mm3 (4.30-5.90)
--- NOTE | 2023-03-29 04:57 | NUR ---
END OF SHIFT NOTE: PT CONTINUES TO DISPLAY FLAT AFFECT SINCE ARRIVING BACK FROM PROCEDURE. ALERT, ORIENTED; TEARFUL AT TIMES WHEN DISCUSSING CURRENT HEALTH CONCERNS. ABLE TO ANSWER QUESTIONS APPROPRIATELY. AGREEABLE W/ ALL CARE PROVIDED. SCHEDULED PO SEROQUEL ADMINISTERED PRIOR TO BEDTIME, ABLE TO SLEEP W/O EPISODES OF AGITATION/ANXIETY OVERNIGHT. HR 80-90'S, SINUS ON TELE. SBP 90-110'S, MAP >65. DENIES CHEST PAIN/PRESSURE. SPO2 >90% ON RA WHILE AWAKE, CPAP WHILE SLEEPING W/ 1.5-2L BLEED IN. AFEBRILE. MINIMAL PO INTAKE OVERNIGHT, ABLE TO TAKE PILLS W/ WATER W/O DIFFICULTY. ATTENDS IN PLACE, PT ABLE TO VOID INDEPENDENTLY IN URINAL. NO BM'S. REPOSITIONED T/O SHIFT. NO OTHER NEEDS AT THIS TIME. CALL LIGHT WITHIN REACH, BED IN LOWEST POSITION. BED ALARM ON FOR PT SAFETY. WILL REPORT TO ONCOMING RN.
[2023-03-29 05:04] LABS: Albumin, Blood 2.1 g/dL (3.4-5.0); Anion Gap 1 mmol/L (6-16); Blood Urea Nitrogen 27 mg/dL (8-24); Bun/Creatinine Ratio 19.7 (12.0-20.0); CO2, Blood 25 mmol/L (21-32); Calcium, Blood 8.6 mg/dL (8.5-10.1); Chloride, Blood 117 mmol/L (98-108); Creatinine, Blood 1.37 mg/dL (0.60-1.20); Glomerular Filtration Rate 51 (60-); Glucose, Blood 109 mg/dL (70-99); Phosphorus, Blood 3.7 mg/dL (2.5-4.9); Potassium, Blood 3.8 mmol/L (3.5-5.5); Sodium, Blood 143 mmol/L (136-145)
--- NOTE | 2023-03-29 07:41 | NUR ---
PT APPEARS TO BE SLEEPING COMFORTABLY AT THIS TIME. CPAP IN PLACE, O2 SAT 94% WITH 2L W/CPAP, PT APPEARS TO BE TOLERATING WELL. PT DOES NOT APPEAR TO BE IN ANY DISTRESS. PER NOC RN PT WAS VERY AGGITATED WITH BEING WOKE THIS AM AND REQUESTING NOT TO BE DISTURBED. WILL COMPLETE FULL ASSESSMENT WHEN PT WAKES.
[2023-03-29 08:44] VITALS: BP 109/68
--- NOTE | 2023-03-29 08:58 | NUR ---
PT REMOVED BIPAP, REFUSED IT AT THIS TIME. REFUSES AM MEDS, STATES HE WILL TAKE ONCE HE HAS RESTED. STATES THIS IS "THE FIRST TIME HE HAS BEEN ABLE TO REST IN A LONG TIME".
--- NOTE | 2023-03-29 13:00 | NUR ---
PT REFUSING NOON VITALS
[2023-03-29] MEDS ORDERED: Seroquel Xr50 MG PO (15:02)
[2023-03-29] MEDS ORDERED: PANT40 PO (15:02)
--- NOTE | 2023-03-29 18:01 | NUR ---
SHIFT SUMMARY PT HAS CONTINUED TO HAVE FLAT AFFECT T/O SHIFT. EXPRESSED FEELING LIKE HE DOES NOT HAVE ANYONE WHO CARES FOR HIM, FRUSTRATED REGARDING ORDERS TO DC HOME HE STATES THAT HE ONLY HAS HELP FOR 3 HOURS A DAY AND THAT HIS IS UNABLE TO CARE FOR HIM. HAS BEEN REFUSING MOST CARE T/O SHIFT. CARE MGMT SAW PT-PLEASE SEE NOTES REGARDING PT APPEALING DISCHARGE HOME. DR BUSBY NOTIFED, PT STATUS CHANGED TO MED NO TELE, CERTIFIED PROCEDURAL CODER NOTIFIED.
[2023-03-29 20:36] VITALS: BP 104/60
[2023-03-30 04:06] VITALS: BP 117/66
[2023-03-30 04:12] LABS: BASOPHILS ABSOLUTE AUTO 0.03 K/mm3 (0.00-0.23); BASOPHILS PERCENT AUTO 1 % (0-2); EOSINOPHILS ABSOLUTE AUTO 0.07 K/mm3 (0.00-0.68); EOSINOPHILS PERCENT AUTO 1 % (0-6); Hematocrit 23.2 % (37.0-53.0); Hemoglobin 7.5 g/dL (13.5-17.5); IMMATURE GRAN ABSOLUTE AUTO 0.01 K/mm3 (0.00-0.10); IMMATURE GRAN PERCENT AUTO 0 % (0-1); LYMPHOCYTES ABSOLUTE AUTO 1.48 K/mm3 (0.84-5.20); LYMPHOCYTES PERCENT AUTO 27 % (21-46); MONOCYTES PERCENT AUTO 13 % (4-13); Mean Corpuscular HGB Conc 32.3 g/dL (31.5-36.5); Mean Corpuscular Volume 93 fL (80-100); NEUTROPHILS ABSOLUTE AUTO 3.19 K/mm3 (1.96-9.15); NEUTROPHILS PERCENT AUTO 58 % (41-73); Platelet Count 308 K/mm3 (150-400); RDW Coefficient Variation 17.4 % (11.7-14.2); RDW Standard Deviation 59.5 fL (35.1-46.3); White Blood Cell Count 5.48 K/mm3 (4.00-11.30)
[2023-03-30 04:30] LABS: Albumin, Blood 1.9 g/dL (3.4-5.0); Anion Gap 2 mmol/L (6-16); Blood Urea Nitrogen 28 mg/dL (8-24); Bun/Creatinine Ratio 20.4 (12.0-20.0); CO2, Blood 24 mmol/L (21-32); Calcium, Blood 8.2 mg/dL (8.5-10.1); Chloride, Blood 119 mmol/L (98-108); Creatinine, Blood 1.37 mg/dL (0.60-1.20); Glomerular Filtration Rate 51 (60-); Glucose, Blood 109 mg/dL (70-99); Phosphorus, Blood 3.1 mg/dL (2.5-4.9); Potassium, Blood 3.6 mmol/L (3.5-5.5); Sodium, Blood 145 mmol/L (136-145)
--- NOTE | 2023-03-30 05:43 | NUR ---
SHIFT SUMMARY THIS RN ASSUMED CARE OF PATIENT AT 1900. PT A&O X4. ABLE TO MAKE NEEDS KNOWN. LABILE MOOD. AGGITATED AT TIMES. REFUSED MIDNIGHT VITALS. PT REMAINS PCU STATUS. NO TRANSFER ORDERS NOTED DESPITE PREVIOUS RN'S VERBAL REPORT AND NURSE NOTE. PT REFUSING REPOSITIONING AT TIMES. VITALS STABLE. BED IN LOWEST POSITION AND CALL LIGHT WITHIN REACH. THIS RN WILL REPORT TO ONCOMING DAYSVAFT RN.
[2023-03-30 06:58] VITALS: BP 121/69
--- NOTE | 2023-03-30 07:22 | NUR ---
ASSUMPTION OF CARE: PATIENT DECLINES CHEST PAIN PRESSURE OR SOB AT REST, VSS, PATIENT SLOW TO RESPOND, CURRENTLY ON THE PHONE TALKING WITH FAMILY. IS STILL ENDORSING HE IS GOING TO APPEAL DISCHARGE DUE TO INABILLITY TO CARE FOR SELF AT HOME. PATIENT ON RA, NO CONCERNS FROM THIS RN AT THIS TIME, ACCORDING TO MAR HE REFUSED MEDICATIONS FOR PREVIOUS DAY RN.
--- NOTE | 2023-03-30 17:20 | NUR ---
PCU TRANSFER Patient alert & oriented x3, c/o of severe pain in bilateral feet. Ankles/feet edematous, +3 pitting edema. MD aware, patient receiving lasix. This afternoon patient reporting severe pain in left foot, stated he is unable to move it. MD at bedside and reviewed plan of care. Comfort care ordered, plan to DC on hospice. Awaiting discharge planning.
[2023-03-31 03:12] VITALS: BP 108/67
--- NOTE | 2023-03-31 08:03 | NUR ---
SHIFT SUMMARY NOC PT A/O X 3-4. COMFORT CARE. NO ACUTE CHANGES TO REPORT. PT HAS CONDOM CATHETER IN PLACE FOR INC AT TIMES. PT HAD C/O OF PAIN IN LLE, BUT DECLINED PAIN RX. PT IS CURRENTLY RESTING WITH BED IN LOWEST POSITION, AND CALL LIGHT WITHIN REACH.
--- NOTE | 2023-03-31 20:26 | NUR ---
DAY SHIFT SUMMARY: A&Ox3-4. CONFUSED WITH PARKINSON'S DEMENTIA. MEDICATED x2 PAIN, x1 AGITATION. C/O DYSPHAGIA; REMIND TO TUCK CHIN WHEN SWALLOWING. DOES BETTER WHEN PILLS IN APPLESAUCE. FAMILY PRESENT AND VERY INVOLVED TODAY. PLANS TO DC TO FACILITY WHEN AVAILABLE; AWAITING PLACEMENT FOR HOSPICE CARE. REPORT TO ONCOMING RN.
--- NOTE | 2023-04-01 06:05 | NUR ---
SHIFT SUMMARY NOC PT A/O X 3. FORGETFUL AT TIMES, BUT PLEASANT AND COOPERATIVE WITH CARE. NO ACUTE CHANGE TO REPORT. CONDOM CATHETER IN PLACE. PT WEARING CPAP FOR SLEEP. PT DISCHARGE IS PENDING PLACEMENT IN HOSPICE FACILITY. PT IS CURRENTLY RESTING WITH BED IN LOWEST POSITION, AND CALL LIGHT WITHIN REACH.
[2023-04-01 07:30] VITALS: BP 103/57
--- NOTE | 2023-04-01 13:44 | NUR ---
Spiritual care visit conducted. Lengthy visit with patient today, he is tearful as he talks about his grown children and that they have not reached out to them. He tells me about his attempts a month or so ago to reconcile the relationships and his recent attempts and was ignored by 2 of his children and had a great conversation with his son but then his son has not contacted him again. He is uncertain about how long he has left to live and is deeply troubled by the disunity in his family. Patient seems to have positive friend support and is deeply committed to his personal prayers to God through out the day. He feels at peace about dying but hates the loneliness of this season. I provide therapeutic listening, gentle family counselor and prayer. Patient is moved by the prayer and voices much appreciation for it and showed signs of greater peace. I will continue to remain available to patient and family.
[2023-04-01 14:45] VITALS: BP 111/62
--- NOTE | 2023-04-01 17:17 | NUR ---
SHIFT SUMMARY: PT IS A&OX2-3. COMFORT CARE. PT STATES THAT HIS LEGS ARE DIFFICULT TO MOVE AND THAT HE REQUIRES 24-HOUR CARE. DISCHARGE PLANNING BEING MANAGED BY CARE COORDINATION. SPOKE WITH PT'S TODAY AND GAVE UPDATE. PT IS TOLERATING PO INTAKE WELL, USING THE URINAL WITHOUT ASSISTANCE, AND USES THE CALL LIGHT APPROPRIATELY. ATTENDS IN PLACE. HE IS LYING IN BED WITH THE CALL LIGHT IN REACH. WILL GIVE REPORT TO TALENT DEVELOPMENT MANAGER RN.
--- NOTE | 2023-04-02 06:14 | NUR ---
SHIFT SUMMARY PT ALERT AND COOPERATIVE WITH CARE. PT STATES HE HAS SOME PAIN IN HIS BACK AND LEFT HIP, DECLINED PAIN MEDS AT THIS TIME. PT STATED "HE NLY NEEDS PAIN MEDS WHEN HE IS MOVING AROUND". CPAP AT HS. PT TOLERATING PO INTAKE WELL. 2P ASSIST TO BSC. PT USES URINAL IND. CALLS APPROPRAITELY FOR NEEDS. PT STATES HE IS NOT ABLE TO CARE FOR HIMSELF AT HOME. PT IS CURRENTLY COMFORT CARE ONLY. DISCHARGE PLANNING BEING COORDINATED. HOME MEDICATION CARVIDOPA LEVEDOPA IN DRAWER LOCKED.
--- NOTE | 2023-04-02 11:09 | NUR ---
PAIN/ANXIETY PT UPSET ABOUT POSSIBLY HAVING TO BE DISCHARGED TODAY. PT CRYING IN ROOM AND CALLING HIS STATING HE NEEDS PICKED UP BY NOON TODAY. PT AND INFORMED THAT WE ARE WAITING TO HEAR BACK FROM [facility] STILL, SO THAT MAY BE THE PLAN FOR TODAY. PT MEDICATED WITH ATIVAN TO HELP HIM CALM DOWN. PT REPORTS PAIN IN HIS BAKC AND LEGS THAT IS NOT MANAGED. PT OFFERED PAIN MEDS, BUT STATES HE DOES NOT WANT THEM HE IS CONSTIPATED. DR. MOYA NOTIFIED OF NEED FOR BOWEL CARE. MIRALAX ADMINISTERED AND PT AGREEABLE TO TAKING PAIN MEDS WITH THE BOWEL CARE ON BOARD.
--- NOTE | 2023-04-02 13:03 | NUR ---
Spiritual care visit conducted. Patient is very upset this AM when I visited the patient. Patient was under the impression that he did not have to D/C so abruptly and that a SNF was being lined up for him. He is tearful as he states that he can't figure out the details of getting himself into a SNF and also can't afford $5,000 a day to stay in the hospital (which is what he states he was told it would cost beginning at noon today). He is frantic, anxious and states that he feels like he is being "kicked to the curb." He sobs as he says that he can't care for himself nor can his who is home bound with caregivers that come in to the home for her care. We explore avenues to deeper peace and focus back in on what he can control and being able to rest in what he can't control. We lean into his ivan in God and take time for prayer and stillness. We pull up some of the coping skills that he has used in the past and reapply them to this situation. Patient showed significant signs of improvement as his face, body and tone of voice relaxed. I will continue to remain available to patient and family
[2023-04-02 14:36] LABS: SARS-Cov-2 (COVID-19) PCR, MMC NEGATIVE (NEGATIVE)
[2023-04-02] MEDS ORDERED: ACET325 PO (15:33)
[2023-04-02] MEDS ORDERED: ACET120S PR (15:34)
[2023-04-02] MEDS ORDERED: Ativan1 MG PO (15:35)
[2023-04-02] MEDS ORDERED: SENN187 PO (15:35)
[2023-04-02] MEDS ORDERED: GABA300 PO (15:35)
[2023-04-02] MEDS ORDERED: MIRALAX17 GM PO (15:36)
[2023-04-02] MEDS ORDERED: ONDA4ODT MM (15:36)
[2023-04-02] MEDS ORDERED: MORP20L SL (15:36)
[2023-04-02] MEDS ORDERED: PROM25 PO (15:37)
--- NOTE | 2023-04-02 16:39 | NUR ---
DISCHARGE REPORT GIVEN TO NURSE PEREZ AT [facility]. PT TRANSPORTED VIA WHEELCHAIR TRANSPORT TO [facility]. FAMILY AT BEDSIDE DURING DISCHARGE. PT MEDICATED WITH ATIVAN ONCE TODAY AND PAIN MEDS TWICE. SEE EMAR. PT DID BECOME MORE CONFUSED AND HALLUCINATE MORE THIS AFTERNOON COMPARED TO THIS AM. FAMILY EDUCATED THAT MEDICATIONS MAY BE THE CAUSE OF THIS. NO FURTHER QUESTIONS REQUIRED AT TIME OF DC.
--- NOTE | 2023-04-02 19:06 | NUR ---
pt anxious today was fearfull and repetative. family came and dc plan was set.
== END 2023-04-02 16:37 | DRG 377 ==
LOC: ER 23:42 → MEDS 03-26 02:59 → PCU 03-26 02:59 → MEDS 03-30 11:14
PROVIDERS: Emergency Medicine; Family Medicine; Internal Medicine; Internal Medicine Gastroenterology; Student in an Organized Health Care Education/Training Program; ADMIT Internal Medicine
PROC: 30233N1 Transfusion of Nonautologous Red Blood Cells into Peripheral Vein, Percutaneous Approach (ICD-10-PCS; 2023-03-28)
PROC: 0DJ08ZZ Inspection of Upper Intestinal Tract, Via Natural or Artificial Opening Endoscopic (ICD-10-PCS; principal; 2023-03-28 11:30)
DX: K92.2 Gastrointestinal hemorrhage, unspecified (principal); J96.01 Acute respiratory failure with hypoxia; D62 Acute posthemorrhagic anemia; I13.0 Hypertensive heart and chronic kidney disease with heart failure and stage 1 through stage 4 chronic kidney disease, or unspecified chronic kidney disease; I50.32 Chronic diastolic (congestive) heart failure; K21.9 Gastro-esophageal reflux disease without esophagitis; N18.30 Chronic kidney disease, stage 3 unspecified; J44.9 Chronic obstructive pulmonary disease, unspecified; Z66 Do not resuscitate; G47.33 Obstructive sleep apnea (adult) (pediatric); Z51.5 Encounter for palliative care; M10.9 Gout, unspecified; G25.81 Restless legs syndrome; N40.0 Benign prostatic hyperplasia without lower urinary tract symptoms; Z96.641 Presence of right artificial hip joint; G20.A1 Parkinson's disease without dyskinesia, without mention of fluctuations; G89.29 Other chronic pain; F02.80 Dementia in other diseases classified elsewhere, unspecified severity, without behavioral disturbance, psychotic disturbance, mood disturbance, and anxiety; E83.42 Hypomagnesemia; F41.9 Anxiety disorder, unspecified; F32.A Depression, unspecified; Z87.891 Personal history of nicotine dependence; H26.9 Unspecified cataract; Z98.890 Other specified postprocedural states; Z88.8 Allergy status to other drugs, medicaments and biological substances; Z86.718 Personal history of other venous thrombosis and embolism; Z79.899 Other long term (current) drug therapy; Z79.01 Long term (current) use of anticoagulants; M19.90 Unspecified osteoarthritis, unspecified site; Z98.1 Arthrodesis status; Z11.52 Encounter for screening for COVID-19
CPT/HCPCS: 36415; 36430; 71045; 80048; 80053; 80069; 81001; 82728; 82803; 83540; 83550; 83605; 83735; 83880; 84100; 84145; 84443; 84484; 85014; 85018; 85025; 85610; 85730; 86850; 86900; 86901; 86923; 87804; 87807; 93005; 93010; 94660; 94760; 94762; 96365; 96366; 97110; 97129; 97162; 97165; 97530; 99285-25; A9270; C9113; J2001; J2704; J3475; J3480; J7030; J7050; J7120; P9016; U0002